=== PATIENT | male | born 1970 | race Caucasian/White ===

== ENCOUNTER 2021-12-26 14:34 | Emergency (ER) | payer BC, SELFPAY ==
[2021-12-26 14:43] VITALS: BP 146/83; PULSE 98; RESP 16; TEMP 36.9; O2SAT 95
--- NOTE | 2021-12-26 14:48 | ED.URI ---
HPI - URI/Sore Throat General Chief Complaint: Upper Respiratory Infection Stated Complaint: Cough, SOB, Right Ear Irritation Time Seen by Provider: 12/26/21 15:11 Source: patient, RN notes reviewed and old records reviewed Mode of arrival: ambulatory Limitations: no limitations History of Present Illness HPI Narrative: 51-year-old male presents to the [facility] with complaints of cough, shortness of breath for 3 weeks. Patient states his cough is worse at night. States that he has tried medication and is just not getting any better. Also concern for his right ear last week it was draining fluid. States that it was painful for a few days, no longer painful Has tried [id number] products. Recently was sick and was treated by her primary with antibiotics and steroids. Patient denies any chest pain, abdominal pain. Denies fevers. MD elicited complaint: cough Related Data Allergies Allergy/AdvReac Type Severity Reaction Status Date / Time No Known Allergies Allergy Unknown Unverified 12/26/21 14:53 Review of Systems Review of Systems: All systems reviewed & are unremarkable except as noted in HPI and below Constitutional: Constitutional: Reports no additional constitutional complaints, Denies chills and Denies fever(s) Eyes: Eyes: Reports no additional eye complaints ENT: Reports as per HPI and Reports otalgia (Right) Cardiovascular: Cardiovascular: Reports no additional cardiovascular complaints Respiratory: Respiratory: Reports as per HPI, Reports chest congestion, Reports cough and Reports wheezing Gastrointestinal: Gastrointestinal: Reports no additional gastrointestinal complaints Musculoskeletal: Musculoskeletal: Reports no additional musculoskeletal complaints Integumentary/Breasts: Skin/Breast: Reports system reviewed and no additional complaints, except as docu Neurologic: Reports system reviewed and no additional complaints, except as documented Psychiatric: Psychiatric: Reports no additional psychiatric complaints Allergic/Immunologic: Allergic/Immunologic: Reports no additional allergic/immunologic complaints [facility] Past Medical History Medical History (Updated 12/27/21 @ 09:29 by Jessica Alvarez APRN) Pulmonary embolism History of, unknown cause, no longer takes blood thinners Social History Social History (Updated 12/27/21 @ 09:29 by Jessica Alvarez APRN) Living arrangements: with family Gender identity (if verbalized by the patient): Male Comments At the time of my signature, I reviewed and agree with the nursing past medical, surgical, social, and family history. There is no relevant family history pertinent to the patient complaint. Exam Const: General: healthy appearing, comfortable, no acute distress, well developed, alert and well nourished Nutritional Appearance: well nourished Orientation/consciousness: patient oriented x3 Limitations: no limitations HENMT: Head: normal to inspection Ears: external ears normal, EAC's normal and TM abnormal wth effusion serous on the right and scarred on the right Face/Nose/Sinus: Normal external nose present and Normal nares present Face and sinus: normal facial exam Mouth: Yes Normal oral and palatal mucosa present Throat: posterior oropharynx normal and uvula midline Eyes: General: appearance normal, both eyes and all related structures Pupils: Equal, round and reactive pupils present Neck: Neck: normal visual inspection, full ROM, no lymphadenopathy and no meningeal signs Chest: Chest palpation & inspection: normal inspection of the chest Resp: Effort & Inspection: normal respiratory effort and no use of accessory muscles Auscultation: no crackles, no rales, no rhonchi and wheezes expiratory wheezes and throughout Cardio: Rate: regular rate Rhythm: regular rhythm Back/Spine/Pelvis: Cervical Spine: cervical ROM normal and No Cervical spine tenderness Thoracic/Lumbar Spine: thoracic and lumbar spine normal to inspection and
== END 2021-12-26 15:27 | disposition home or self-care (01) ==
PROVIDERS: Emergency Provider Nurse Practitioner; PCP Internal Medicine
DX: J40 Bronchitis, not specified as acute or chronic (principal); Z86.711 Personal history of pulmonary embolism
CPT/HCPCS: 99213; G0463

== ENCOUNTER 2022-10-16 18:11 | Observation (INO) | payer BC, SELFPAY ==
--- NOTE | ~2022-10-16 | CT_ITS ---
EXAMINATION: CTA chest PE protocol DATE: 10/16/2022 22:53 INDICATION: Shortness of breath. TECHNIQUE: Computed tomography angiography (CTA) of the chest was performed with 100 mL Omnipaque-350 intravenous contrast timed to evaluate the pulmonary arteries. Coronal maximum intensity projection 3D-reconstructions were created by the technologist. Automated exposure control and iterative reconst ruction technique were employed. The dose-length product was 1239.54 mGy-cm. COMPARISON: Chest CT 12/14/2018 FINDINGS: The lungs demonstrate minimal atelectasis. No pleural effusion. The heart size is normal. N o pericardial effusion. There are pulmonary emboli in right upper lobe, right lower lobe, left lower lobe, and lingula. There are cysts in the kidneys measuring up to 3.5 cm on the right. There is mild thoracic spondylosis. IMPRESSION: 1. Bilateral acute pulmonary emboli. I called this result to Dr. Mckeon. Reviewed, dictated and finalized at location E.
--- NOTE | ~2022-10-16 | US_ITS ---
EXAMINATION: US venous doppler [facility] DATE: 10/16/2022 21:54 INDICATION: Left thigh pain. TECHNIQUE: Grayscale ultrasound images without and with compression and Doppler ultrasound images of the left lower extremity veins were obtained. COMPARISON: Ultrasound 08/02/2017 FINDINGS: The visualized portions of left common femoral vein, profunda (deep) femoral vein, femoral vein, popl iteal vein, peroneal veins, and posterior tibial veins are patent. There is thrombus in left greater saphenous vein. IMPRESSION: 1. No deep venous thrombosis. 2. Superficial vein thrombosis involving left greater saphenous vein. Reviewed, dictated and finalized at location E.
[2022-10-16 18:42] VITALS: BP 147/90; PULSE 108; RESP 20; TEMP 36.6; O2SAT 97
[2022-10-16 19:21] LABS: Basophils Absolute Auto 0.1 K/mm3 (0.0-0.1); Basophils Percent Auto 0.8 % (0.2-1.2); Eosinophils Absolute Auto 0.2 K/mm3 (0-0.3); Eosinophils Percent Auto 1.8 % (0-4.4); Hematocrit 44.9 % (42.0-52.0); Hemoglobin 15.3 g/dL (14.0-18.0); Immature Granulocyte Absolute 0.02 K/mm3 (0.00-0.031); Immature Granulocyte Percent A 0.2 % (0-0.5); Lymphocytes Absolute Auto 1.93 K/mm3 (0.9-3.2); Lymphocytes Percent Auto 23.3 % (18.3-44.2); Mean Corpuscular HGB Conc 34.1 g/dl (32-36); Mean Corpuscular Hemoglobin 32.6 pg (26-34); Mean Corpuscular Volume 95.7 fl (80-100); Mean Platelet Volume 9.2 fl (7.4-10.4); Monocytes Absolute Auto 0.7 K/mm3 (0.1-0.6); Monocytes Percent Auto 8.7 % (2.6-8.5); Neutrophils Absolute Auto 5.4 K/mm3 (1.3-6.7); Neutrophils Percent Auto 65.2 % (45.5-73.1); Platelet Count Result 255 k/mm3 (150-375); Red Blood Count 4.69 M/mm3 (4.6-6.20); Red Cell Distribution Width 12.2 % (11.5-14.5); White Blood Count 8.3 K/mm3 (4.5-10.0)
[2022-10-16 19:33] LABS: Alanine Aminotransferase 31 U/L (6-50); Albumin Level 4.7 g/dL (3.5-5.1); Alkaline Phosphatase 46 U/L (38-126); Anion Gap 9 mmol/L (8-16); Aspartate Amino Transferase 36 U/L (17-59); Bilirubin,Total 1.1 mg/dL (0.2-1.3); Blood Urea Nitrogen 18 mg/dL (9-20); Calcium 9.4 mg/dL (8.4-10.2); Carbon Dioxide 24 mmol/L (22-30); Chloride 105 mmol/L (98-107); Estimated CRCL calculation 140 ml/min; Estimated Glomerular Filt Rate > 60; Glucose 93 mg/dL (65-110); Potassium 3.9 mmol/L (3.4-5.0); Sodium 138 mmol/L (137-145)
[2022-10-16 19:47] LABS: D Dimer 2.26 ug/mL (<0.48)
[2022-10-16 23:27] LABS: Basophils Absolute Auto 0.1 K/mm3 (0.0-0.1); Basophils Percent Auto 0.9 % (0.2-1.2); Eosinophils Absolute Auto 0.2 K/mm3 (0-0.3); Eosinophils Percent Auto 2.2 % (0-4.4); Hematocrit 43.6 % (42.0-52.0); Hemoglobin 15.1 g/dL (14.0-18.0); Immature Granulocyte Absolute 0.02 K/mm3 (0.00-0.031); Immature Granulocyte Percent A 0.3 % (0-0.5); Lymphocytes Absolute Auto 2.39 K/mm3 (0.9-3.2); Lymphocytes Percent Auto 30.5 % (18.3-44.2); Mean Corpuscular HGB Conc 34.6 g/dl (32-36); Mean Corpuscular Hemoglobin 32.7 pg (26-34); Mean Corpuscular Volume 94.4 fl (80-100); Mean Platelet Volume 8.8 fl (7.4-10.4); Monocytes Absolute Auto 0.8 K/mm3 (0.1-0.6); Monocytes Percent Auto 10.5 % (2.6-8.5); Neutrophils Absolute Auto 4.4 K/mm3 (1.3-6.7); Neutrophils Percent Auto 55.6 % (45.5-73.1); Platelet Count Result 227 k/mm3 (150-375); Red Blood Count 4.62 M/mm3 (4.6-6.20); Red Cell Distribution Width 12.3 % (11.5-14.5); White Blood Count 7.8 K/mm3 (4.5-10.0)
[2022-10-16] MEDS: HEPARIN SODIUM 5,000 UNITS/ML VIAL 9000 UNITS IV PUSH (23:30)
[2022-10-16] MEDS: HEPARIN SOD/D5W 100 UNITS/ML 25,000 UNITS/250 ML BAG 15 UNITS IV CONT (23:30)
[2022-10-16 23:37] LABS: Prothrombin Time 13.8 Seconds (11.1-14.7)
[2022-10-16 23:38] LABS: Partial Thromboplastin Time 30.8 SECONDS (22.3-36.8)
--- NOTE | 2022-10-16 23:41 | PM.IMHP ---
H&P: HPI History of Present Illness Date/Time: 10/16/22 23:41 Chief Complaint: SHORTNESS OF BREATH Narrative: THIS IS A 52-YEAR-OLD MALE WITH PAST MEDICAL HISTORY SIGNIFICANT FOR MORBID OBESITY, ASTHMA. PATIENT PRESENTS TO THE EMERGENCY ROOM DUE TO SHORTNESS OF BREATH AT EXERTION, DENIES HEMOPTYSIS DENIES COUGH DENIES SPUTUM PRODUCTION NO CHEST PAIN NO PND NO ORTHOPNEA NO LEG SWELLING PATIENT ALSO NOTED A SWELLING REDNESS AND TENDERNESS LOCALIZED TO THE LOWER 3RD OF HIS INNER THIGH JUST ABOVE THE KNEE. EXAMINATION: US venous doppler LE LT DATE: 10/16/2022 21:54 INDICATION: Left thigh pain. TECHNIQUE: Grayscale ultrasound images without and with compression and Doppler ultrasound images of the left lower extremity veins were obtained. COMPARISON: Ultrasound 08/02/2017 FINDINGS: The visualized portions of left common femoral vein, profunda (deep) femoral vein, femoral vein, popliteal vein, peroneal veins, and posterior tibial veins are patent. There is thrombus in left greater saphenous vein. IMPRESSION: 1.? No deep venous thrombosis. 2. Superficial vein thrombosis involving left greater saphenous vein. EXAMINATION: CTA chest PE protocol DATE: 10/16/2022 22:53 INDICATION: Shortness of breath. TECHNIQUE: Computed tomography angiography (CTA) of the chest was performed with 100 mL Omnipaque-350 intravenous contrast timed to evaluate the pulmonary arteries. Coronal maximum intensity projection 3D-reconstructions were created by the technologist. Automated exposure control and iterative reconstruction technique were employed. The dose-length product was 1239.54 mGy-cm. COMPARISON: Chest CT 12/14/2018 FINDINGS: The lungs demonstrate minimal atelectasis. No pleural effusion. The heart size is normal. No pericardial effusion. There are pulmonary emboli in right upper lobe, right lower lobe, left lower lobe, and lingula. There are cysts in the kidneys measuring up to 3.5 cm on the right. There is mild thoracic spondylosis. IMPRESSION: 1. Bilateral acute pulmonary emboli. I called this result to Dr. Mckeon. Review of Systems Review of Systems: SHORTNESS OF BREATH Constitutional: Constitutional: Denies chills, Denies fever(s), Denies malaise and Denies weakness Eyes: Eyes: Denies change in vision ENT: Denies dysphagia, Denies vertigo, Denies dizziness and Denies odynophagia Cardiovascular: Cardiovascular: Denies chest pain, Denies radiating jaw, neck or arm pain and Denies palpitations Respiratory: Respiratory: Denies chest congestion, Denies cough, Denies hemoptysis and Reports pain on inspiration Gastrointestinal: Gastrointestinal: Denies abdominal pain, Denies dyspepsia, Denies heartburn, Denies diarrhea, Denies nausea and Denies vomiting Genitourinary: Genitourinary: Denies dysuria Musculoskeletal: Musculoskeletal: Denies muscle weakness Integumentary/Breasts: Skin/Breast: Reports erythema and Reports skin swelling (Of thrombophlebitis distal 3rd of the thigh) Neurologic: Denies vertigo, Denies dizziness, Denies syncope, Denies focal weakness and Denies Sensory deficit (Neuro) Psychiatric: Psychiatric: Reports no additional psychiatric complaints and Reports as per HPI Endocrine: Endocrine: Denies cold intolerance, Denies fatigue, Denies flushing, Denies heat intolerance, Denies polyphagia, Denies polydipsia, Denies polyuria and Denies palpitations Hematologic/Lymphatic: Hematologic/Lymphatic: Reports no additional hematologic/lymphatic complaints and Reports as per HPI Allergic/Immunologic: Allergic/Immunologic: Reports no additional allergic/immunologic complaints and Reports as per HPI PMFSH Past Medical History Medical History Pulmonary embolism History of, unknown cause, no longer takes blood thinners Social History Social History Smoking status: Never smoker Alcohol
[2022-10-16 23:52] VITALS: BP 150/97; PULSE 83; RESP 17; O2SAT 98
[2022-10-16 23:52] LABS: NT Pro B Type Natriuretic Pept < 20 pg/mL (19.9-100); Troponin I < 0.012 ng/mL (0.000-0.034)
[2022-10-16 23:59] VITALS: PULSE 83
[2022-10-17] VITALS (8 sets, daily range): BP systolic 108–157; BP diastolic 51–93; PULSE 75–89; RESP 15–20; TEMP 36.1–36.5; O2SAT 96–98; BMI 40.3
--- NOTE | 2022-10-17 | ECHO_ITS ---
Patient Info Name: Iglesia Bassett Age: 52 years : 1970 Gender: Male Ht: 77 in Wt: 339 lbs BSA: 2.95 m2 HR: 73 bpm BP: 133 / 84 mmHg Heart Rhythm: Sinus Rhythm Technical Quality: Fair Exam Date: 10/17/2022 2:15 PM Exam Location: [facility] Pulmonary Patient Status: Inpatient Admit Date: 10/17/2022 Staff Ordering Physician: Ligia Bates APRN Resource Efficiency Manager: Marla Winter RDCS Attending Provider: Louisa Burrell MD Referring Physician: Jana GARNER; Exam Type: CA echo doppler color flow Study Info Indications - PE Complete two-dimensional, color flow and Doppler transthoracic echocardiogram is performed. Summary 1. Complete two-dimensional, color flow and Doppler transthoracic echocardiogram is performed. 2. Left ventricular chamber dimension is normal. 3. Left ventricular systolic function is normal, estimated at 65-70%. 4. There is mildly increased left ventricular wall thickness. 5. The left ventricular diastolic function is abnormal. 6. Right ventricular chamber dimension is mildly enlarged. 7. Left atrial chamber dimension is mildly enlarged. 8. There is mild aortic valve regurgitation. 9. There is mild mitral valve regurgitation. 10. The mitral valve has thickened leaflets. 11. There is mild tricuspid valve regurgitation. 12. No pulmonary hypertension, estimated pulmonary arterial systolic pressure is 34 mmHg. Left Ventricle Left ventricular chamber dimension is normal. Left ventricular systolic function is normal, estimated at 65-70%. There is mildly increased left ventricular wall thickness. The left ventricular diastolic function is abnormal. Right Ventricle Right ventricular chamber dimension is mildly enlarged. Right ventricular systolic function is normal. Left Atria Left atrial chamber dimension is mildly enlarged. Right Atria Right atrial chamber dimension is normal. Atrial Septum Intact interatrial septum visualized by color flow imaging. Aortic Valve The aortic valve is trileaflet. There is mild aortic valve sclerosis. There is no aortic valve stenosis. There is mild aortic valve regurgitation. Pulmonic Valve The pulmonic valve is normal. There is no pulmonic valve stenosis. There is trace pulmonic regurgitation. Mitral Valve The mitral valve has thickened leaflets. There is no mitral valve stenosis. There is mild mitral valve regurgitation. Tricuspid Valve The tricuspid valve leaflets are normal. There is no significant tricuspid valve stenosis. There is mild tricuspid valve regurgitation. No pulmonary hypertension, estimated pulmonary arterial systolic pressure is 34 mmHg. Pericardium/Pleural The pericardium appears normal. There is no pericardial effusion. Inferior Vena Cava Normal inferior vena cava with >50% collapse upon inspiration consistent with normal right atrial pressure, 10 mmHg. Aorta The aortic root size at the sinus of Valsalva is normal. Left Ventricular Outflow Tract Name Value Normal LVOT 2D LVOT Diameter 2.0 cm LVOT Doppler LVOT Peak Gradient 6 mmHg LVOT Mean Gradient 3 mmHg LVOT VTI 25 cm LVOT VTI/AV VTI Ratio
--- NOTE | 2022-10-17 00:17 | ED.GENADULT ---
HPI - General Adult General Chief complaint: Shortness of Breath/Dyspnea Stated complaint: sob Time Seen by Provider: 10/16/22 23:08 History of Present Illness HPI narrative: Patient is a 52-year-old gentleman who presents the emergency department with chief complaint of left leg pain and shortness of breath. Patient reports he has prior history of a DVT and pulmonary embolism. Patient reports he was treated with anticoagulants and was able to be taken off of the blood thinner and has been doing well. The patient reports he has had no travel no trauma reports he does work a job where he sits a lot patient reports over the last several days he has noticed some redness and swelling in the left lower extremity at the level of the knee patient reports he is also started having shortness of breath and was concerned that he may have had a pulmonary embolism. Related Data Allergies Allergy/AdvReac Type Severity Reaction Status Date / Time No Known Allergies Allergy Unknown Unverified 12/26/21 14:53 Review of Systems Review of Systems: A 10 system review of systems was completed on the patient and is negative except for what is stated in the HPI. Nursing and ancillary documentation was reviewed. [facility] Past Medical History Medical History Pulmonary embolism History of, unknown cause, no longer takes blood thinners Social History Social History Living arrangements: with family Gender identity (if verbalized by the patient): Male Exam Narrative: GENERAL: Well-appearing, well-nourished, and in no acute distress. HEAD: Normocephalic, atraumatic. EYES: PERRLA and EOMI. ENT: Nares clear, no rhinorrhea or epistaxis. Mucous membranes moist. NECK: Supple. CHEST: Clear to auscultation. No respiratory distress. HEART: Regular rate and rhythm. No murmur heard. Normal peripheral pulses. ABDOMEN: Soft, nontender, nondistended, normal active bowel sounds. EXTREMITIES: Normal range of motion. Slight edema of the left lower extremity there is an area of erythema just proximal to the popliteal fossa on the left lower extremity on the medial aspect. SKIN: Warm, dry, no rash. NEURO: No focal deficits. Alert and oriented x3. PSYCH: Normal mood and affect. Course Vital Signs Vital signs: Vital Signs Temperature 36.6 C 10/16/22 18:42 Pulse Rate 108 H 10/16/22 18:42 Respiratory Rate 20 10/16/22 18:42 Blood Pressure 147/90 H 10/16/22 18:42 Pulse Oximetry 97 10/16/22 18:42 Oxygen Delivery Room Air 10/16/22 18:42 Temperature 36.6 C 10/16/22 18:42 Pulse Rate 83 10/16/22 23:59 Respiratory Rate 17 10/16/22 23:52 Blood Pressure 150/97 H 10/16/22 23:52 Pulse Oximetry 98 10/16/22 23:52 Oxygen Delivery Room Air 10/16/22 18:42 Medical Decision Making MDM Narrative Medical decision making narrative: Differential diagnosis includes deep venous thrombosis, pulmonary embolism Venous duplex of the left lower extremity showed: Superficial vein thrombosis involving left greater saphenous vein CTA chest showed evidence of Bilateral acute pulmonary emboli. There was no evidence of right heart strain on CT Laboratory studies were obtained which showed a normal CBC normal set of electrolytes negative troponin negative BNP Given the patient has multiple pulmonary emboli on CT scan the patient was started on heparin drip Case was discussed with the hospitalist the patient admitted for observation Vital Signs Vital Signs: Vital Signs Temperature 36.6 C 10/16/22 18:42 Pulse Rate 108 H 10/16/22 18:42 Respiratory Rate 20 10/16/22 18:42 Blood Pressure 147/90 H 10/16/22 18:42 Pulse Oximetry 97 10/16/22 18:42 Oxygen Delivery Room Air 10/16/22 18:42 Temperature 36.6 C 10/16/22 18:42 Pulse Rate 83 10/16/22 23:59 Respiratory Rate 17 10/16/22 23:52
--- NOTE | 2022-10-17 02:33 | ADMGEN ---
This patient, Iglesia Bassett, was admitted to 3 [facility] Surg Room 315-02 at 0203. Patient/family oriented to hospital policies and general routines including ID bracelet, bed and alarms, visiting hours, pain management, procedures, bathroom and other care routines, personal items, smoking policy, room service/diet, and visiting hours. Information on how to activate the Rapid Response Team has been discussed. Patient/Family are encouraged to report perceived risks to care and to ask questions if they do not understand what they are told or what they should do.
[2022-10-17 06:12] LABS: Basophils Absolute Auto 0.1 K/mm3 (0.0-0.1); Basophils Percent Auto 1.1 % (0.2-1.2); Eosinophils Absolute Auto 0.2 K/mm3 (0-0.3); Eosinophils Percent Auto 3.4 % (0-4.4); Hematocrit 41.3 % (42.0-52.0); Immature Granulocyte Absolute 0.02 K/mm3 (0.00-0.031); Immature Granulocyte Percent A 0.3 % (0-0.5); Lymphocytes Absolute Auto 2.04 K/mm3 (0.9-3.2); Lymphocytes Percent Auto 33.3 % (18.3-44.2); Mean Corpuscular HGB Conc 33.9 g/dl (32-36); Mean Corpuscular Hemoglobin 32.6 pg (26-34); Mean Platelet Volume 8.9 fl (7.4-10.4); Monocytes Absolute Auto 0.7 K/mm3 (0.1-0.6); Monocytes Percent Auto 10.8 % (2.6-8.5); Neutrophils Absolute Auto 3.1 K/mm3 (1.3-6.7); Neutrophils Percent Auto 51.1 % (45.5-73.1); Platelet Count Result 216 k/mm3 (150-375); Red Cell Distribution Width 12.5 % (11.5-14.5); White Blood Count 6.1 K/mm3 (4.5-10.0)
[2022-10-17 06:34] LABS: Partial Thromboplastin Time 65.5 SECONDS (22.3-36.8)
--- NOTE | 2022-10-17 07:46 | PM.IMPN ---
Progress Note: A&P Assessment and Plan (1) Bilateral pulmonary embolism: Code(s): I26.99 - Other pulmonary embolism without acute cor pulmonale Status: Acute Assessment and Plan: Heparin gtt Echo this morning Doppler shows superficial DVT of left greater saphenous which is likely source. Likely to transition to a DOAC after ECHO results Hypercoagulable workup pending given this is his second non-provoked DVT. (2) HTN (hypertension): Code(s): I10 - Essential (primary) hypertension Status: Acute Assessment and Plan: On home medications amlodipine and losartan. Holding this medications initially until ECHO results. Blood pressures reviewed and are stable Subjective Date/time seen: 10/17/22 07:46 Interval history: This is a 52-year-old male with a past medical history of morbid obesity, asthma, DVT, and PE. Patient comes to the ED with complaints of shortness of breath I is has left lower extremity redness and swelling. CTA confirms multiple pulmonary emboli. He was admitted for anticoagulation and observation. Will obtain an echocardiogram today to assess for right sided heart strain. 10/17: Patient seen at the bedside with his . He is resting comfortably and is in no acute distress. He denies shortness of breath or chest pain. He has some mild erythema, edema, and tenderness to his left medial thigh. He is currently on heparin drip multiple for PEs. An echocardiogram has been ordered as well as labs for hypercoagulable workup. This is his 2nd unprovoked DVT and PE. He has no complaints at this time. Review of Systems Review of Systems: All systems reviewed & are unremarkable except as noted in HPI and below Exam Narrative: General: well appearing, well developed, well nourished, appears stated age. HEENT: normocephalic, atraumatic. Mucous membranes moist. EOMI, PERRLA, bilateral sclera anicteric, no conjunctival injection. Neck supple without JVD, lymphadenopathy, or bruit. Respiratory: clear to auscultation bilaterally. No rales/rhonic/wheezes. Cardiovascular: Regular rate and rhythm, normal S1-S2 upon auscultation. No murmurs, rubs, or clicks. PMI is nondisplaced, capillary re-fill less than 3 second. Abdomen: Soft, flat, no pulsatile masses, non-distended and non-tender. No rebound, no guarding. No CVA tenderness, no hepatosplenomegaly. Bowel sounds present to all four quadrants. No high pitch or tinkling sounds, resonant to percussion. Extremities: No cyanosis or clubbing present. Slight erythema, tenderness, and warmth to left distal-medial thigh. Pulses are palpable 2/2. Active ROM to all four extremities. Neuro: Alert and orientated x 4. PERRLA. Cranial nerves 2-12 intact without focal deficit. Skin: Warm, dry, and intact, without rash, erythema, or lesion. Lines: PIV Incisions: N/a Psych: pleasant, cooperative, normal speech, normal affect, no hallucinations, no dysarthria Objective Data Vital Signs Vital Signs: Vital Signs - 24 hr 10/16/22 18:42 10/16/22 23:52 10/16/22 23:59 Temperature 97.9 F Pulse Rate 108 H 83 83 Respiratory Rate 20 17 Blood Pressure 147/90 H 150/97 H Pulse Oximetry 97 98 Oxygen Delivery Room Air 10/17/22 01:50 10/17/22 02:18 10/17/22 04:00 Temperature 97.5 F L Pulse Rate 81 75 78 Respiratory Rate 15 16 Blood Pressure 157/93 H 108/51 L Pulse Oximetry 96 96 Oxygen Delivery 10/17/22 06:00 10/17/22 06:18 Temperature 97.7 F Pulse Rate 81 Respiratory Rate 16 Blood Pressure 133/84 Pulse Oximetry 98 Oxygen Delivery Room Air Intake/Output Intake/Output: Intake & Output 10/14/22 10/15/22 10/16/22 10/17/22 23:59 23:59 23:59 23:59 Intake Total 150 Balance 150 Meds/Results Medications: Active Medications Generic Name Dose Route Start Last Admin Trade Name Freq PRN Reason Stop Dose Admin Heparin Sodium (Porcine) 4,500 units 10/16/22 23:08 Heparin Sodium 5,000 Units/Ml
[2022-10-17] MEDS: MONTELUKAST SODIUM 10 MG TABLET PO (09:14)
[2022-10-17] MEDS: TIZANIDINE HCL 4 MG TABLET PO (09:14)
[2022-10-17] MEDS: LORATADINE 10 MG TABLET PO (09:14)
[2022-10-17 09:35] LABS: Anion Gap 9 mmol/L (8-16); Blood Urea Nitrogen 20 mg/dL (9-20); Calcium 8.7 mg/dL (8.4-10.2); Carbon Dioxide 25 mmol/L (22-30); Chloride 104 mmol/L (98-107); Estimated CRCL calculation 140 ml/min; Estimated Glomerular Filt Rate > 60; Glucose 104 mg/dL (65-110); Sodium 138 mmol/L (137-145)
[2022-10-17 12:21] LABS: Basophils Percent Auto 0.8 % (0.2-1.2); Eosinophils Absolute Auto 0.2 K/mm3 (0-0.3); Eosinophils Percent Auto 3.2 % (0-4.4); Hematocrit 40.7 % (42.0-52.0); Hemoglobin 13.7 g/dL (14.0-18.0); Immature Granulocyte Absolute 0.01 K/mm3 (0.00-0.031); Immature Granulocyte Percent A 0.2 % (0-0.5); Lymphocytes Absolute Auto 1.72 K/mm3 (0.9-3.2); Lymphocytes Percent Auto 34.8 % (18.3-44.2); Mean Corpuscular HGB Conc 33.7 g/dl (32-36); Mean Corpuscular Hemoglobin 32.3 pg (26-34); Mean Platelet Volume 8.9 fl (7.4-10.4); Monocytes Absolute Auto 0.4 K/mm3 (0.1-0.6); Monocytes Percent Auto 8.7 % (2.6-8.5); Neutrophils Absolute Auto 2.6 K/mm3 (1.3-6.7); Neutrophils Percent Auto 52.3 % (45.5-73.1); Platelet Count Result 223 k/mm3 (150-375); Red Blood Count 4.24 M/mm3 (4.6-6.20); Red Cell Distribution Width 12.4 % (11.5-14.5); White Blood Count 4.9 K/mm3 (4.5-10.0)
[2022-10-17 12:36] LABS: Partial Thromboplastin Time 51.5 SECONDS (22.3-36.8)
[2022-10-17] MEDS: HEPARIN SODIUM 5,000 UNITS/ML VIAL 9000 UNITS IV PUSH (12:56)
[2022-10-17] MEDS: HEPARIN SOD/D5W 100 UNITS/ML 25,000 UNITS/250 ML BAG 20 UNITS IV CONT (15:13)
--- NOTE | 2022-10-17 16:46 | PM.DS ---
DS: Admitting Diagnosis Discharge Date October 17 Admitting Diagnosis TIA DS: Discharge Diagnosis Discharge Diagnosis (1) Bilateral pulmonary embolism: Code(s): I26.99 - Other pulmonary embolism without acute cor pulmonale Status: Acute Assessment and Plan: Heparin gtt Echo this morning Doppler shows superficial DVT of left greater saphenous which is likely source. Likely to transition to a DOAC after ECHO results Hypercoagulable workup pending given this is his second non-provoked DVT. (2) HTN (hypertension): Code(s): I10 - Essential (primary) hypertension Status: Acute Assessment and Plan: On home medications amlodipine and losartan. Holding this medications initially until ECHO results. Blood pressures reviewed and are stable DS: Summary Hospital Course Hospital Course: Interval history: This is a 52-year-old male with a past medical history of morbid obesity, asthma, DVT, and PE.? Patient comes to the ED with complaints of shortness of breath I is has left lower extremity redness and swelling.? CTA confirms multiple pulmonary emboli.? He was admitted for anticoagulation and observation. Will obtain an echocardiogram today to assess for right sided heart strain. 10/17:? Patient seen at the bedside with his .? He is resting comfortably and is in no acute distress.? He denies shortness of breath or chest pain.? He has some mild erythema, edema, and tenderness to his left medial thigh.? He is currently on heparin drip multiple for PEs.? An echocardiogram has been ordered as well as labs for hypercoagulable workup.? This is his 2nd unprovoked DVT and PE.? He has no complaints at this time. Status at Discharge Cognitive/behavioral status at discharge: A&Ox4 Time Spent with Patient Time attestation: Total time spent providing and/or coordinating discharge services: 40 Exam Narrative: General: well appearing, well developed, well nourished, appears stated age. HEENT: normocephalic, atraumatic. Mucous membranes moist. EOMI, PERRLA, bilateral sclera anicteric, no conjunctival injection. Neck supple without JVD, lymphadenopathy, or bruit. Respiratory: clear to auscultation bilaterally. No rales/rhonic/wheezes. Cardiovascular: Regular rate and rhythm, normal S1-S2 upon auscultation. No murmurs, rubs, or clicks. PMI is nondisplaced, capillary re-fill less than 3 second. Abdomen: Soft, flat, no pulsatile masses, non-distended and non-tender. No rebound, no guarding. No CVA tenderness, no hepatosplenomegaly. Bowel sounds present to all four quadrants. No high pitch or tinkling sounds, resonant to percussion. Extremities: No cyanosis or clubbing present. Slight erythema, tenderness, and warmth to left distal-medial thigh. Pulses are palpable 2/2. Active ROM to all four extremities. Neuro: Alert and orientated x 4. PERRLA. Cranial nerves 2-12 intact without focal deficit. Skin: Warm, dry, and intact, without rash, erythema, or lesion. Lines: PIV Incisions: N/a Psych: pleasant, cooperative, normal speech, normal affect, no hallucinations, no dysarthria DS: Data Data Completed and Pending Labs on day of discharge: Labs from last 24 hours 10/17/22 10/17/22 10/17/22 12:06 06:14 06:09 WBC 4.9 RBC 4.24 L Hgb 13.7 L Hct 40.7 L MCV 96.0 MCH 32.3 MCHC 33.7 RDW 12.4 Plt Count 223 MPV 8.9 Immature Gran % (Auto) 0.2 Neut % (Auto) 52.3 Lymph % (Auto) 34.8 [place] % (Auto) 8.7 H Eos % (Auto) 3.2 Baso % (Auto) 0.8 Lymph # (Auto) 1.72 [place] # (Auto) 0.4 Eos # (Auto) 0.2 Baso # (Auto) 0.0 Abs Immat Gran (auto) 0.01 Absolute Neuts (auto) 2.6 Absolute Nucleated RBC 0.0 Nucleated RBC % 0.0 PT INR APTT 51.5 H 65.5 H D-Dimer Prot C Funct Activity Pending Protein S Activity Pending Free Protein S Antigen Pending Antithrombin III Activ Pending Factor V Leiden Mutat Pending Fact
--- NOTE | 2022-10-17 17:00 | PC.NURSE ---
This nurse has reviewed the charting of the orienting license pending nurse and agree with the findings
[2022-10-22 18:27] LABS: Factor V (Leiden) Mutation NEGATIVE
== END 2022-10-17 17:20 | disposition home or self-care (01) ==
LOC: ANHED 10-17 00:21 → ANH3MEDSUR 10-17 01:38
PROVIDERS: Emergency Medicine; Nurse Practitioner Acute Care; Admitting Provider Internal Medicine; Emergency Provider Emergency Medicine; PCP Internal Medicine; Visit Provider Internal Medicine
DX: I26.99 Other pulmonary embolism without acute cor pulmonale (principal); I10 Essential (primary) hypertension; I82.812 Embolism and thrombosis of superficial veins of left lower extremity; I08.3 Combined rheumatic disorders of mitral, aortic and tricuspid valves; E66.01 Morbid (severe) obesity due to excess calories; Z68.41 Body mass index [BMI] 40.0-44.9, adult; Z86.718 Personal history of other venous thrombosis and embolism; Z86.711 Personal history of pulmonary embolism; F10.90 Alcohol use, unspecified, uncomplicated
CPT/HCPCS: 36415; 71275; 80048; 80053; 81240; 81241; 83880; 84484; 85025; 85300; 85303; 85306; 85380; 85610; 85730; 93306; 93971; 96365; 96366; 96376; 99285; A9270; G0378; J1644; Q9967

== ENCOUNTER 2022-12-21 10:16 | Emergency (ER) | payer BC, SELFPAY ==
[2022-12-21] VITALS (11 sets, daily range): BP systolic 115–154; BP diastolic 68–92; PULSE 66–93; RESP 10–22; TEMP 37.1; O2SAT 92–99
--- NOTE | ~2022-12-21 | CT_ITS ---
EXAMINATION: CT brain wo con DATE: 12/21/2022 11:00 INDICATION: Headache. TECHNIQUE: Computed tomography (CT) of the head was performed without intravenous contrast. The mA wa s adjusted according to patient size. Iterative reconstruction technique was employed. The dose-lengt h product was 681.00 mGy-cm. COMPARISON: Head CT 12/14/2018 FINDINGS: There is no intracranial hemorrhage, acute infarction, or abnormal intracranial mass lesion . The ventricles are normal in size. There is mucosal thickening in the paranasal sinuses. The mastoi d air cells are normal. IMPRESSION: 1. Normal brain. Reviewed, dictated and finalized at location E. IMPRESSION: 1. Normal brain.
--- NOTE | 2022-12-21 10:46 | ECG_ITS ---
Measurements Intervals [place] Rate: 75 P: 27 [place]: 159 QRS: -46 QRSD: 95 T: 25 QT: 397 QTc: 445 Interpretive Statements SINUS RHYTHM LEFT ANTERIOR FASCICULAR BLOCK ABNORMAL ECG COMPARED TO ECG 12/14/2018 19:55:41 LEFT ANTERIOR FASCICULAR BLOCK NOW PRESENT Electronically Signed On 12-21-2022 14:20:18 CDT by Hay Lovell D.O.
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
[2022-12-21 11:16] LABS: Basophils Absolute Auto 0.1 K/mm3 (0.0-0.1); Basophils Percent Auto 1.3 % (0.2-1.2); Eosinophils Absolute Auto 0.1 K/mm3 (0-0.3); Eosinophils Percent Auto 2.1 % (0-4.4); Hematocrit 48.8 % (42.0-52.0); Hemoglobin 16.4 g/dL (14.0-18.0); Immature Granulocyte Absolute 0.01 K/mm3 (0.00-0.031); Immature Granulocyte Percent A 0.2 % (0-0.5); Lymphocytes Absolute Auto 1.67 K/mm3 (0.9-3.2); Lymphocytes Percent Auto 31.2 % (18.3-44.2); Mean Corpuscular HGB Conc 33.6 g/dl (32-36); Mean Corpuscular Hemoglobin 31.8 pg (26-34); Mean Corpuscular Volume 94.8 fl (80-100); Mean Platelet Volume 9.7 fl (7.4-10.4); Monocytes Absolute Auto 0.4 K/mm3 (0.1-0.6); Monocytes Percent Auto 6.9 % (2.6-8.5); Neutrophils Absolute Auto 3.1 K/mm3 (1.3-6.7); Neutrophils Percent Auto 58.3 % (45.5-73.1); Platelet Count Result 335 k/mm3 (150-375); Red Blood Count 5.15 M/mm3 (4.6-6.20); Red Cell Distribution Width 12.1 % (11.5-14.5); White Blood Count 5.4 K/mm3 (4.5-10.0)
[2022-12-21] MEDS: SODIUM CHLORIDE 0.9% IV 1,000 ML 999 ML IV CONT (11:19)
[2022-12-21] MEDS: PROCHLORPERAZINE EDISYLATE 10 MG/2 ML VIAL IV PUSH (11:20)
[2022-12-21] MEDS: diphenhydrAMINE HCl INJ 50 MG/ML VIAL 25 MG IV PUSH (11:23)
[2022-12-21] MEDS: ACETAMINOPHEN 500 MG TABLET 1000 MG PO (11:24)
[2022-12-21 11:54] LABS: Alanine Aminotransferase 35 U/L (6-50); Albumin Level 4.5 g/dL (3.5-5.1); Alkaline Phosphatase 48 U/L (38-126); Anion Gap 8 mmol/L (8-16); Aspartate Amino Transferase 34 U/L (17-59); Blood Urea Nitrogen 15 mg/dL (9-20); Calcium 9.1 mg/dL (8.4-10.2); Carbon Dioxide 24 mmol/L (22-30); Chloride 104 mmol/L (98-107); Estimated CRCL calculation 126 ml/min; Estimated Glomerular Filt Rate > 60; Glucose 108 mg/dL (65-110); Potassium 4.1 mmol/L (3.4-5.0); Sodium 136 mmol/L (137-145)
[2022-12-21 12:32] LABS: INR 1.2; Prothrombin Time 16.3 Seconds (11.1-14.7)
[2022-12-21 12:33] LABS: Partial Thromboplastin Time 39.9 SECONDS (22.3-36.8)
== END 2022-12-21 13:45 | disposition home or self-care (01) ==
PROVIDERS: Emergency Provider Physician Assistant; PCP Internal Medicine
DX: G44.209 Tension-type headache, unspecified, not intractable (principal); R55 Syncope and collapse; I10 Essential (primary) hypertension; Z86.711 Personal history of pulmonary embolism; Z79.01 Long term (current) use of anticoagulants
CPT/HCPCS: 36415; 70450; 80053; 85025; 85610; 85730; 93005; 96361; 96374; 96375; 99284; A9270; J0780; J1200; J7030

== ENCOUNTER 2024-02-12 09:15 | Emergency (ER) | payer BC, SELFPAY ==
--- NOTE | 2024-02-12 09:50 | ED_ITS ---
HPI - URI/Sore Throat General Stated Complaint: Sinus Time Seen by Provider: 02/12/24 09:50 Source: patient, RN notes reviewed and old records reviewed Mode of arrival: ambulatory Limitations: no limitations History of Present Illness HPI Narrative: Patient who was treated 2 weeks ago for atypical pneumonia presents with complaints of feeling so he failed treatment. He states that while taking azithromycin and prednisone he began feeling better, but never felt as though infection had also we cleared. Over the past few days he reports lack of energy, increased sputum production. He denies any fever, chills, sweats. Denies any shortness of breath Related Data Home Medications ?Medication ?Instructions ?Recorded ?Confirmed ?Last Taken ?Type budesonide-formoterol HFA 160 See Rx Instructions .Route .COMPLEX 10/17/22 02/12/24 Unknown History mcg-4.5 mcg/actuation aerosol inhaler (Symbicort) losartan 50 mg tablet 50 mg PO DAILY 10/17/22 02/12/24 Unknown History hydrochlorothiazide 12.5 mg tablet mg 02/12/24 Unknown History levothyroxine 25 mcg tablet mcg 02/12/24 Unknown History (Synthroid) metoprolol succinate 25 mg mg PO 02/12/24 Unknown History tablet,extended release 24 hr rivaroxaban 20 mg tablet (Xarelto) mg 02/12/24 Unknown History Allergies Allergy/AdvReac Type Severity Reaction Status Date / Time No Known Allergies Allergy Unknown Verified 02/12/24 09:47 Review of Systems Review of Systems: All systems reviewed & are unremarkable except as noted in HPI and below Constitutional: Constitutional: Reports no additional constitutional complaints ENT: Reports system reviewed and no additional complaints, except as documented Cardiovascular: Cardiovascular: Reports no additional cardiovascular complaints Respiratory: Respiratory: Reports no additional respiratory complaints, Report s change in phlegm color, Reports chest congestion, Reports cough, Reports excessive phlegm production and Reports pain with cough Gastrointestinal: Gastrointestinal: Reports no additional gastrointestinal complaints PMFSH Past Medical History Medical History Pulmonary embolism History of, unknown cause, no longer takes blood thinners Social History Social History Smoking status: Never smoker Alcohol intake: current Drinks per week: 1 Substance use: never Lack of Transportation: No Lack of Food: Never True Current Housing: I Have Housing Concerned About Future Housing: No Difficulty Paying Gas/Electric Bills: No Difficulty Paying for Meds: No Currently Unemployed: No Education: Bachelor's Degree Difficulty w/ Childcare or Family Care: No Living arrangements: with family Gender identity (if verbalized by the patient): Male Spiritual care concerns: No Comments At the time of my signature, I reviewed and agree with the nursing past medical, surgical, social, and family history. There is no relevant family history pertinent to the patient complaint. Exam Const: General: cooperative, no acute distress, alert and awake Orientation/consciousness: oriented to person, oriented to place and oriented to time HENMT: Head: normal to inspection Mouth: Yes moist mucous membranes Resp: Effort & Inspection: normal respiratory effort and able to speak in complete sentences Auscultation: clear to auscultation bilaterally, crackles on the left at the base, no rales, no rhonchi and no wheezes Cardio: Palpation: normal PMI Rate: regular rate Rhythm: regular rhythm Heart sounds: S1 normal heart sound present and S2 normal heart sound present Neuro: General: oriented to person, oriented to place and oriented to time Cranial nerves: Yes CN's II-XII intact bilaterally Psych: Appearance: grossly normal Thought process: Normal thought process present Insight: Good insight present (Psych) Judgement: Good judgement present (Psych) Course Course Level of Care: Express Care Visit Vital Signs Vital signs: Reviewed MDM - URI/Sore Throat MDM Narrative Medical decision making narrative: Patient failed monotherapy of azithromycin for atypical pneumonia. He does have multiple comorbidities. Start doxycycline, steroid Dosepak, refill albuterol. Patient is nontoxic appearing, stable for discharge home on p.o. antibiotic therapy. Strict emergency department precautions discussed. Discharge instructions reviewed with patient, as well as provided in writing per nursing staff. The instructions also include specific and strict return/GO TO THE ER as well as f/u information. All questions have been answered, and the patient deny any further questions with discharge and discharge plan. Some parts of this dictation were generated by voice recognition software and may contain typographical and/or grammatical inaccuracies. Differential Diagnosis Differential diagnosis: Likely upper respiratory infection, croup, viral infection and influenza Medical Records Attestation: I reviewed the patient's medical records. Discharge Plan Discharge Clinical Impression: Pneumonia Qualifiers: Pneumonia type: due to unspecified organism Laterality: unspecified laterality Lung location: unspecified part of lung Qualified Code(s): J18.9 - Pneumonia, unspecified organism Patient Disposition: Home, Self-Care Condition: Stable Instructions: Antibiotic Form, Community Acquired Pneumonia (ED) Additional Instructions: Take all medications as prescribed. Follow up with primary care provider. Emergency department for any new or worsening symptoms Patient Language: [place] Prescriptions: New doxycycline hyclate 100 mg capsule 100 mg PO BID 10 Days Qty: 20 0RF albuterol sulfate [Ventolin HFA] 90 mcg/actuation HFA aerosol inhaler 2 puff inhalation QID PRN (Reason: shortness of breath or wheezing) Qty: 8.5 0RF methylprednisolone [Medrol (Wei)] 4 mg tablets,dose pack See Rx Instructions .ROUTE .COMPLEX Qty: 21 0RF Rx Instructions: for 6 days No Action albuterol sulfate 90 mcg/actuation HFA aerosol inhaler 2 puff inhalation QID PRN (Reason: shortness of breath or wheezing) Qty: 6.7 0RF (DME) Space Chamber Spacer See Rx Instructions .ROUTE .MEDSUPPLY Qty: 1 0RF Rx Instructions: As directed levothyroxine [Synthroid] 25 mcg tablet metoprolol succinate 25 mg tablet extended release 24 hr PO hydrochlorothiazide 12.5 mg tablet Xarelto 20 mg tablet losartan 50 mg tablet 50 mg PO DAILY budesonide-formoterol [Symbicort] 160-4.5 mcg/actuation HFA aerosol inhaler See Rx Instructions .ROUTE .COMPLEX Rx Instructions: INHALE 2 PUFFS BY MOUTH TWICE DAILY IN THE MORNING AND IN THE EVENING FOR ASTHMA Follow-up/Referrals: Gracia,MD Nigel [Primary Care Provider] - 1 Week Time of Disposition: 09:57
[2024-02-12 10:20] VITALS: BP 132/79; PULSE 90; RESP 20; TEMP 36.8; O2SAT 98
== END 2024-02-12 11:00 | disposition home or self-care (01) ==
PROVIDERS: Emergency Provider Nurse Practitioner Family; PCP Internal Medicine
DX: J18.9 Pneumonia, unspecified organism (principal)
CPT/HCPCS: 99213; G0463

== ENCOUNTER 2024-10-26 16:28 | Emergency (ER) | payer BC, SELFPAY ==
[2024-10-26] VITALS (11 sets, daily range): BP systolic 148–151; BP diastolic 69–87; PULSE 73–85; RESP 12–20; TEMP 36.6; O2SAT 94–100
--- NOTE | ~2024-10-26 | XR_ITS ---
EXAMINATION: XR chest 2V, 10/26/2024 17:50 CDT HISTORY: chest pain AND SOB COMPARISON: No comparisons available. Technique: 2 views obtained. Findings: The lungs are clear, no effusion. No pneumothorax. Heart is normal size. Mediastinal and hilar contours are within normal limits. Bony thorax no acute abnormality. Impression: No acute cardiopulmonary abnormality. Reviewed, dictated and finalized at location A. Impression: No acute cardiopulmonary abnormality.
--- NOTE | 2024-10-26 16:30 | ECG_ITS ---
Test Date: 2024-10-26 16:38:16 Measurements Intervals [place] Rate: 87 P: 47 [place]: 159 QRS: -52 QRSD: 100 T: 32 QT: 367 QTc: 443 Interpretive Statements SINUS RHYTHM PATTERN CONSISTENT WITH PULMONARY DISEASE LEFT ANTERIOR FASCICULAR BLOCK [QRS AXIS <= -45, QR IN I, RS IN II] No previous ECG available for comparison Electronically Signed On 10-26-2024 18:51:47 CDT by Willard Agudelo M.D.
--- OUTSIDE RECORDS SUMMARY | 2024-10-26 16:31 | XMS_ITS | Patient Health Record ---
Author Organization [facility] Address [address] [place] [address] Care Team Providers Care Crimper Assembler Name Role Phone LeonorFrank patterson Unavailable [phone] Reason For Referral No Information Plan Of Treatment No Information Insurance Providers Payer Name Payer Address Payer Phone Subscriber Number Group Number Insured Name Patient Relationship to Insured Coverage Start Date Coverage End Date Employe r/eScre en [address] [address] [place] [address] [phone] Iglesia Bassett Self - patient is the insured
--- OUTSIDE RECORDS SUMMARY | 2024-10-26 16:32 | XMS_ITS | Clinical Summary ---
Author Organization [facility] Address [address] [place] [address] Care Team Providers Care Drug Enforcement Agent Name Role Phone Nigel Fagan MD Primary Care Provider [phone] Source Comments [facility],non-owned Affiliates and Associated Physician Practices is amultiple site organization consisting of ambulatory clinics and hospital sitesin [place], [place], [place] and [place]. This disclosure is being madepursuant to the Care Everywhere program and may not contain all information available regarding this patient. Last updated 17.[facility] Allergies No known active allergies Medications * Be aware that medications may not be up to date on this document. Alwaysverify current medications with the patient. albuterol HFA (PROVENTIL; VENTOLIN; PROAIR) 108 (90 Base) MCG/ACT inhalerIndication s:Acute bronchitis, unspecified organism Inhale 2 (two) puffs by mouth every 6 hours as needed for Wheezing or Cough 1 g 2 1 Active Multiple Vitamins-Minerals (PRESERVISION AREDS 2) capsule Act job naproxen sodium (ALEVE) 220 MG tablet Take 220 mg by mouth Active benzonatate (TESSALON) 200 MG capsuleIndication s:Mild intermittent asthma with acute exacerbation (HCC) Take 1 (one) capsule by mouth 3 times daily as needed for Cough 30 capsule 1 Active predniSONE (DELTASONE) 50 MG tabletIndications :Asthma Take 1 (one) tablet by mouth once daily Reasons: Asthma 5 tablet 1 Active fluticasone hfa 44 (FLOVENT HFA 44) 44 MCG/ACT inhalerIndication s:Mild intermittent asthma with acute exacerbation (HCC) Inhale 2 (two) puffs by mouth 2 times daily 31.8 g Active Active Problems No known active problems Family History Relation Name Status Comments Father Alive Mother Alive Social History Tobacco Use Types Packs/Day Years Used Date Smoking Tobacco: Never Smokeless Tobacco: Never Alcohol Use Standard Drinks/Week Comments Yes 0 (1 standard drink = 0.6 oz pur e alcohol) AUDIT-C Answer Date Recorded Frequency of Alcohol Consumption Monthly or less 12/30/2018 Average Number of Drinks Not on file 019 Frequency of Binge Drinking Not on file 12/20 Sex and Gender Information Value Date Recorded Sex Assigned at Not on file Legal Sex Male 1:47 PM CDT Gender Identity Not on file Sexual Orientation Not on file Last Filed Vital Signs Vital Sign Reading Time Taken Comments Blood Pressure 138/92 02/11/2021 11:27 AM [employer] Pulse 103 02/11/2021 11:27 AM [employer] Temperature 36.9 C (98.5 F) 02/11/2021 11:27 AM [employer] Respiratory Rate 20 02/11/2021 11:27 AM [employer] Oxygen Saturation 92% 02/11/2021 11:27 AM [employer] Inhaled Oxygen Concentration - - Weight 154.2 kg (340 lb) 02/11/2021 11:27 AM [employer] Height 195.6 cm (6' 5) 02/11/2021 11:27 AM [employer]AC[employer] Body Mass Index 40.32 02/11/2021 11:27 AM [employer]BAC[employer] Plan of Treatment Health Maintenance Due Date Last Done Comments COLOGUARD (AGES 45-75) - COL ON CA SCREENING 1972 COLON MONITORING 1972 COLONOSCOPY - COLON CA SCREENING 1972 CT COLONOGRAPHY - COLON CA SCREENING 1972 Colorectal Cancer Screening 1972 FIT - COLON CA SCREENING 1972 FLEX SIG - COLON CA SCREENING 1972 LIPID TESTING 1972 HIV SCREENING 06/02/1987 HEPATITIS C SCREENING 05/28/1990 DTAP/TDAP/TD VACCINES (1 - Tdap) 06/02/1991 HEPATITIS B VACCINE (1 of 3 - 19+ 3-dose series) 06/02/1991 SCREENING FOR DIABETES 01/26/2021 PNEUMOCOCCAL VACCINE 50+ (1 of 1 - PCV) 2022 ZOSTER VACCINE (1 of 2) 2022 DEPRESSION SCREENING 02/20/2024 COVID-19 VACCINE (4 - 2024-2 6 season) 2024 12/14/2020, 05/19/2020, 04/21/2020 INFLUENZA VACCINE (#1) 2024 12/14/2020 HIB VACCINE Aged Out No longer eligi ble based on patient's age to complete this topic HPV VACCINE Aged Out No longer eligi ble based on patient's age to complete this topic MENINGOCOCCAL (Group B) VACCINE SHARED DECISION-MAKING Aged Out No longer eligible based on patient's age to complete this topic MENINGOCOCCAL GROUPS A/C/Y/W VACCINE Aged Out No longer eligible b ased on patient's age to complete this topic Goals Goal Patient Goal Type Associated Problems Recent Progress Patient-Stated? Author Mobility General No Elodia Aguiar RN Note: Expected end date: 02/19/2019 The goal is to maintain or improve your mobility at the optimum level for you. Interventions: Insurance PAYOR GENERIC ANTHEM PAYOR GENERIC Member Subscriber Plan / Payer (Ef fective 2018-Present) Name:Iglesia Ch Relation to Subscriber:Self Name:Iglesia Ch Payer ID:Not on file Group ID:Not on file Type:Worker's Comp Address: [address] [id number] [employer] PAYOR GENERIC ANTHEM ANTHEM ANTHEM ANTHEM ANTHEM ANTHEM ANTHEM ANTHEM ANTHEM Care Teams Drug Enforcement Agent Relationship Specialty Start Date End Date Nigel Fagan MD [address] [place] [address] PCP - General Internal Medicine 12/14/18
--- OUTSIDE RECORDS SUMMARY | 2024-10-26 16:32 | XMS_ITS | Clinical Summary ---
Author Organization [facility] Address [address] [place] [address] Care Team Providers Care Bologna Lacer Name Role Phone Nigel Fagan MD Primary Care Provider [phone] Allergies No known active allergies Medications naproxen (ANAPROX,ALEVE) 220 mg tablet Take 1 tablet (220 mg total) by mouth every 12 (twelve) hours as needed for pain Active vit C,I-Gq-zjxeb-lut ein-zeaxan [id number] rc-lxgo-jl-mg capsule Take by mouth. Activ e nutritional supplements liquid Take by mouth. 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 Active hydroCHLOROthiaz courtney (HYDRODIURIL) 25 mg tablet Take 1 tablet (25 mg total) by mouth daily Active metoprolol XL (TOPROL-XL) 25 mg extended release tablet Take 1 tablet (25 mg total) by mouth daily Active rivaroxaban (XARELTO) 20 mg tablet Take 1 tablet (20 mg total) by mouth daily with dinner Active losartan (COZAAR) 100 mg tablet Take 1 tablet (100 mg total) by mouth daily Active ofloxacin (OCUFLOX) 0.3 % ophthalmic solution Administer 1 drop into the left eye 4 (four) times a day 5 mL 1 4 Active prednisoLONE acetate (PRED FORTE) 1 % ophthalmic suspension Administer 1 drop into the left eye 4 (four) times a day 15 mL 1 4 Active Active Problems Problem Noted Date Diagnosed Date Pseudophakia of left eye 11/16/2023 Assessment & Plan (12/20/2023 9:28 AM CDT): POM #1 s/p CE/PCIOL - Doing well, vision and IOP as expected. Patient happy with vision. Near target -2.50. Hx of mac-off RD s/p repair. - Tapered off drops as instructed - OCT mac without macular edema - MRx today, defer glasses RTC 6 months with optom for DFE OU Assessment & Plan (11/22/2023 8:56 AM CDT): POW #1 s/p CE/PCIOL - Doing well, vision and IOP as expected. Near target -2.50. Hx of RD repair - D/C moxifloxacin - Taper prednisolone QID x 1 week, TIDx 1week, BIDx1 week, daily x 1 week then stop - Reviewed signs/symptoms endophthalmitis, RT/RD; patient to call immediately if any worsening vision, pain, redness, flashes/floaters/curtains. - Avoid lifting/bending/swimming for one more week. Protective eyewear during day. Okay to discontinue [place] shield at night. - RTC 1 month for DFEx, MRx Assessment & Plan (11/16/2023 4:22 PM CDT): POD #0 s/p CE/PCIOL - Doing well, vision and IOP as expected Postoperative instructions were given. The patient is to use: - Moxifloxacin QID X 1 week - Prednisolone Acetate 1% QID - Patient is to wear the shield at bedtime X 1 week. Signs, symptoms of retinal detachment, tear, hole, and endophthalmitis were reviewed and the patient is to call immediately for concerns. We discussed that things should improve until they stabilize. Should there be any worsening of pain, vision, or redness the patient is to call. 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 If experiencing any new pain OS, asked patient to call the office and restart cosopt bid OS until next appointment. If no changes stay off gtts. Keep retina f/u 04/24/18 Assessment & Plan (03/13/2018 11:00 AM FACILITY EXAMINER): IOP improved from 38 02/27/18 to 12 today. Will d/c cosopt and see back in 2 weeks in general clinic for IOP check, then plan on keeping retina appt 04/24/18 Left retinal detachment 01/21/2018 Overview (01/21/2018): Added automatically from request for surgery [id number] Assessment & Plan (03/31/2019 8:53 AM FACILITY EXAMINER): s/p PPV/laser/18% SF6 OS (01/25/2018) for mac off RD OS -- Pt feels vision OS is stable, doing well overall -- OCT with resolved persistent subretinal fluid since last visit RTC 6 months for repeat OCT macula OU and DFE OU Assessment & Plan (09/25/2018 9:37 AM CDT): POM 8 01/25/2018 status post (s/p) pars plana vitrectomy (PPV)/laser/18% SF6 the left eye. -- Pt feels vision OS is stable, doing well overall -- Stable few persistent subretinal fluid pockets since last visit on OCT -- RTC 6 months for repeat OCT and DFEx Assessment & Plan (06/20/2018 11:56 AM CDT): POM 5 01/25/2018 status post (s/p) pars plana vitrectomy (PPV)/laser/18% SF6 the left eye. -- Pt feels vision OS is stable, doing well overall -- Stable few persistent subretinal fluid pockets since last visit -- RTC 3 months for repeat OCT and DFEx Assessment & Plan (04/24/2018 5:35 PM FACILITY EXAMINER): POM 2 01/25/2018 status post (s/p) pars plana vitrectomy (PPV)/laser/18% SF6 the left eye .No changes in vision. IOP okay off drops. Overall doing well. Some persistent subretinal fluid pockets, but seems generally improved from prior. Periphery good. -RTC 2 months [facility]ERR[facility] for repeat OCT and DFEx. Assessment & Plan (02/27/2018 4:16 PM FACILITY EXAMINER): POM1 01/25/2018 status post (s/p) pars plana vitrectomy (PPV)/laser/18% SF6 the left eye .No changes in vision. IOP mildly elevated. -Pt did not start timolol; will start Cosopt BID starting today; informed pt that if the medication is too expensive, then we can write for separate timolol & dorzolamide RTC 2wks for IOP check and then 2 months to check retina Assessment & Plan (02/14/2018 8:23 AM FACILITY EXAMINER): Post op week #3 status post (s/p) pars plana vitrectomy (PPV)/laser/18% SF6 the left eye 01/25/18. No changes in vision. IOP mildly elevated. - Cont taper pred forte (PF) to BID x 1w then every day (QD) x 1w. - Will start pt on Timolol BID left eye (OS). Will stop timolol 1 day prior to visit. RTC 2wks. - RSVP precautions reviewed - Back to work 02/25/2018 Assessment & Plan (02/06/2018 2:18 PM FACILITY EXAMINER): Post op week #2 status post (s/p) pars plana vitrectomy (PPV)/laser/18% SF6 the left eye. Doing well. IOP mildly elevated. Will monitor for now. Vision pinholing better. right eye (OD) with single floater. Excellent vision. Will monitor - Discontinue Tobrex - Pred forte (PF) 3-2-1 then stop - RSVP precautions reviewed - Back to work 02/20/2018 - Plan for follow-up 2 weeks or sooner PRN Assessment & Plan (01/26/2018 9:19 AM FACILITY EXAMINER): Post op day #1 status post (s/p) pars plana vitrectomy (PPV)/laser/18% SF6 the left eye. Doing well. -Tobramycin QID the left eye x 1 wk then stop -Pred forte (PF) QIDthe left eye x 1 wk, then can taper to TID -Shield at bedtime (qhs) -RSVP precautions reviewed -f/u 7-10 days, sooner PRN Assessment & Plan (01/23/2018 3:20 PM FACILITY EXAMINER): OD s/p barrier cryotherapy (01/20/2018): Attached. Vision stable OS s/p pneumatic retinopexy (01/20/2018): Appears attached today under gas but unable to visualize peripheral tear for in-office laser. Scheduled for PPV left eye (OS). Will plan definitive treatment at that time with PPV/Endolaser/AFx - Continue positioning. Discussed R/B/A of procedures again. Plan for OR 01/23 Surgical History Surgery Date Site/Laterality Comments WISDOM TOOTH EXTRACTION LASER SURGERY 02/19/2002 - 02/18/2003 PARS PLANA VITRECTOMY 01/25/2018 Left pars plana vitrectomy (PPV)/laser/18% SF6 Medical History Medical History Date Comments PE (pulmonary thromboembolism) Head trauma DVT (deep venous thrombosis) Left retinal detachment 01/21/2018 Added au tomatically from request for surgery [id number] Family History Medical History Relation Name Comments Diabetes Paternal Grandmother Relation Name Status Comments Paternal Grandmother Social History Tobacco Use Types Packs/Day Years Used Date Smoking Tobacco: Never Smokeless Tobacco: Never Alcohol Use Standard Drinks/Week Comments Yes 1 (1 standard drink = 0.6 oz pur e alcohol) Personal Safety Answer Date Recorded Have you ever been in or are you currently in a harmful physical or emotional relationship or is someone making you feel afraid or unsafe? Denies 11/16/2023 Sex and Gender Information Value Date Recorded Sex Assigned at Not on file Legal Sex Male 5:20 AM FACILITY EXAMINER Gender Identity Male 03/31/2019 7:49 AM FACILITY EXAMINER Sexual Orientation Not on file Obstetrics History Last Filed Vital Signs Vital Sign Reading Time Taken Comments Blood Pressure 131/82 11/16/2023 11:40 AM CDT Pulse 66 11/16/2023 11:50 AM CDT Temperature 36.2 C (97.2 F) 11/16/2023 11:35 AM CDT Respiratory Rate 14 11/16/2023 11:50 AM CDT Oxygen Saturation 94% 11/16/2023 11:50 AM CDT Inhaled Oxygen Concentration - - Weight 133.8 kg (295 lb) 01/21/2018 12:50 PM FACILITY EXAMINER Height 195.6 cm (6' 5) 01/21/2018 12:50 PM FACILITY EXAMINER Body Mass Index 34.98 01/21/2018 12:50 PM FACILITY EXAMINER Plan of Treatment Health Maintenance Due Date Last Done Comments Colon Cancer Screening-Colonoscopy 1972 Depression Screening 1972 Hepatitis C Screening 1972 Prostate Cancer Screening-PSA 1972 DTaP/Tdap/Td Vaccine (1 - Tdap) 06/02/1983 Hepatitis B Screening 1990 Regular Well Visit/Exam 18-64 1990 Zoster Vaccine (1 of 2) 2022 Covid-19 Vaccine (4 - season) 2023 12/14/2020, 05/19/2020, 04/21/2020 Influenza Vaccine (#1) 2024 3, 12/14/2020, 11/14/2019 Pneumococcal vaccine <65 Completed 11/29/2022 Medical Devices Implanted Type Area Plastic Injection Mold Maker Device Identifier Shelf Expiration Date Model / Serial / Lot [employer] Lens Jose Sharp Iol [id number] - [id number] - [id number] Implanted:Qty: 1 on 11/16/2023 by Gurinder Crespo MD PhD at [facility] Lens Left: Eye [employer] [id number] 12/18/2025 [id number] / [id number] / Insurance ANTHEM ACCESS CHOICE BLUE ACC CHOICE OOS ANTHEM ACCESS CHOICE Care Teams Bologna Lacer Relationship Specialty Start Date End Date Nigel Fagan MD PCP - General 01/20/18
--- OUTSIDE RECORDS SUMMARY | 2024-10-26 16:32 | XMS_ITS | Clinical Summary ---
Author Organization [facility] Address [address] [place] [address] Care Team Providers Care Public Health Aide Name Role Phone Unavailable Primary Care Provider Unavailabl e Social History Tobacco Use Types Packs/Day Years Used Date Smoking Tobacco: Never Assessed Sex and Gender Information Value Date Recorded Sex Assigned at Not on file Legal Sex Male 9:55 AM CDT Gender Identity Not on file Sexual Orientation Not on file Plan of Treatment Health Maintenance Due Date Last Done Comments DTAP/TDAP/TD VACCINES (1 - Tdap) 06/02/1991 HEPATITIS B VACCINES (1 of 3 - 19+ 3-dose series) 05/20 COLORECTAL SCREENING 2017 Colorectal Cancer Screening 2017 FIT-DNA Q 3 years 2017 FIT/FOBT Q 1 year 2017 Flex Sig/CT Colonography Q 5 years 2017 ZOSTER VACCINE (1 of 2) 2022 INFLUENZA VACCINE (#1) 2024 Insurance [facility] BLUE ACCESS CHOICE [facility] BLUE ACCESS CHOICE
[2024-10-26 16:47] LABS: Hematocrit 40.1 % (42.0-52.0); Hemoglobin 13.5 g/dL (14.0-18.0); Immature Granulocyte Percent A 0.2 % (0-0.5); Lymphocytes Absolute Auto 1.58 K/mm3 (0.9-3.2); Mean Corpuscular HGB Conc 33.7 g/dl (32-36); Mean Corpuscular Hemoglobin 31.8 pg (26-34); Mean Corpuscular Volume 94.4 fl (80-100); Nucleated Red Blood Cells Absolute Auto 0.000 K/mm3 (0.0-0.012); Nucleated Red Blood Cells Perc 0.0 % (0.0-0.2); Platelet Count Result 222 k/mm3 (150-375); Red Blood Count 4.25 M/mm3 (4.6-6.20); White Blood Count 4.9 K/mm3 (4.5-10.0)
[2024-10-26 16:59] LABS: INR 1.4; Prothrombin Time 16.5 Seconds (11.1-14.7)
[2024-10-26 17:00] LABS: Partial Thromboplastin Time 31.5 Seconds (22.3-36.8)
[2024-10-26 17:03] LABS: Alanine Aminotransferase 27 U/L (6-50); Albumin Level 3.8 g/dL (3.5-5.1); Alkaline Phosphatase 44 U/L (38-126); Anion Gap 5 mmol/L (4-12); Aspartate Amino Transferase 41 U/L (17-59); Bilirubin,Total 1.0 mg/dL (0.2-1.3); Blood Urea Nitrogen 18 mg/dL (9-20); Calcium 8.8 mg/dL (8.4-10.2); Carbon Dioxide 29 mmol/L (22-30); Chloride 104 mmol/L (98-107); Estimated CRCL calculation 102 ml/min; Estimated Glomerular Filt Rate 58; Glucose 111 mg/dL (65-110); Lipase 72 U/L (23-300); Potassium 3.6 mmol/L (3.4-5.0); Sodium 138 mmol/L (137-145); Total Protein 6.4 g/dL (6.3-8.2)
[2024-10-26 17:10] LABS: Troponin I < 0.012 ng/mL (0.000-0.034)
--- NOTE | 2024-10-26 17:17 | ED_ITS ---
HPI - Chest Pain General Chief Complaint: Chest Pain Stated Complaint: chest pain, SOB Time Seen by Provider: 10/26/24 16:48 History of Present Illness HPI narrative: Patient is a 54-year-old male who presents to the ER with chest pain that started last night returned this afternoon. He endorses shortness of breath and lower extremity edema. 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 He also reports he has a history of stents in both hips. Patient denies any cough, recent fevers, acute back pain, or CVA tenderness. He denies any history of CHF. Patient endorses a history of pulmonary embolisms, back injury, May-Cruz disease, thyroid disorder, and high blood pressure. Related Data Home Medications ?Medication ?Instructions ?Recorded ?Confirmed ?Last Taken ?Type budesonide-formoterol HFA 160 See Rx Instructions .Rou te .COMPLEX 10/17/22 02/12/24 Unknown History mcg-4.5 mcg/actuation aerosol inhaler (Symbicort) losartan 50 mg tablet 50 mg PO DAILY 10/17/2201/20 Unknown History hydrochlorothiazide 12.5 mg tablet mg 02/12/24 Unknow n History levothyroxine 25 mcg tablet mcg 02/12/24 Unknown Hist ory (Synthroid) metoprolol succinate 25 mg mg PO 02/12/24 Unknown His tory tablet,extended release 24 hr rivaroxaban 20 mg tablet (Xarelto) mg 02/12/24 Unknow n History Allergies Allergy/AdvReac Type Severity Reaction Status Date / Time tizanidine AdvReac Intermediate Hypotension Verified 10/26/24 16:39 Review of Systems 2 Review of Systems: All systems reviewed & are unremarkable except as noted in HPI and below PMFSH Past Medical History Medical History (Updated 10/26/24 @ 20:39 by Edilma Falcon APRN) Pulmonary embolism (~10/26/24) due to May Thurner syndrome Social History Social History Smoking status: Never smoker Alcohol intake: current Drinks per week: 1 Substance use: never Lack of Transportation: No Lack of Food: Never True Current Housing: I Have Housing Concerned About Future Housing: No Difficulty Paying Gas/Electric Bills: No Difficulty Paying for Meds: No Currently Unemployed: No Education: Bachelor's Degree Difficulty w/ Childcare or Family Care: No Living arrangements: with family Gender identity (if verbalized by the patient): Male Spiritual care concerns: No Exam 2 Narrative: GENERAL: Well appearing, obese, non-toxic, in no acute distress. HEAD: Normocephalic, atraumatic. NECK: Supple. No adenopathy, no masses. RESPIRATORY: Airway patent, respirations nonlabored. Clear to auscultation bilaterally, no rales, rhonchi, wheezing. CARDIOVASCULAR: Regular rate and rhythm without murmurs, rubs, or gallops. Peripheral pulses 2+ and equal bilaterally. bilateral extreme lower extremity pitting edema. ABDOMINAL: Soft, nontender, nondistended, no hepatosplenomegaly. Normoactive BS. MUSCULOSKELETAL: Moves all extremities. Strength/ROM intact without gross deformities. + Homans test bilaterally SKIN: Warm, dry, normal color. No rashes. NEURO: A&O X3. Speech clear. Cranial nerves II-XII intact. No ataxic movements. PSYCHIATRIC: Appropriate mood and affect. Normal interaction. Course Vital Signs Vital signs: Vital Signs Temperature 36.6 C 10/26/24 16:35 Pulse Rate 85 10/26/24 16:35 Respiratory Rate 14 10/26/24 16:35 Blood Pressure 148/87 H 10/26/24 16:35 Pulse Oximetry 97 10/26/24 16:35 Oxygen Delivery Room Air 10/26/24 16:35 Temperature 36.6 C 10/26/24 16:35 Pulse Rate 73 10/26/24 21:01 Respiratory Rate 15 10/26/24 21:01 Blood Pressure 151/69 H 10/26/24 21:01 Pulse Oximetry 100 10/26/24 21:01 Oxygen Delivery Room Air 10/26/24 16:39 MDM - Chest Pain MDM Narrative Medical decision making narrative: Patient is a 54-year-old male who presents to the ER with chest pain that started last night returned this afternoon. He endorses shortness of breath and lower extremity edema. 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 He also reports he has a history of stents in both hips. Patient denies any cough, recent fevers, acute back pain, or CVA tenderness. He denies any history of CHF. Patient endorses a history of pulmonary embolisms, back injury, May-Cruz disease, thyroid disorder, and high blood pressure. Labs Ordered: CBC, CMP, BMP, TSH, troponin, PTT, INR, D-dimer, lipase Imaging Ordered: Chest x-ray Medications Ordered: Lasix 40 mg IV, potassium 40 mEq p.o. Results: Patient's chest x-ray indicates no acute abnormalities. His CBC indicates a WBC of 4.25, hemoglobin of 13.5, and hematocrit of 40.1%. Patient's coags indicated PT of 16.5, INR 1.4, APTT of 31.5. His D-dimer is 0.46. Patient's chemistry indicates GFR 58, glucose of 111. His proBNP is 161. Patient's TSH is 2.16. Diagnosis: Venous insufficiency Consults: 2000- Spoke with [facility] on-call provider, Marc Soria NP. He shared results from patient's venous ultrasound 1 week ago. The MORTGAGE PROTECTION SPECIALIST reports patient has no clots in his legs, but has severe left leg venous insufficiency. He reports the insufficiency could be backing up into the right leg which would cause bilateral leg pain. The MORTGAGE PROTECTION SPECIALIST suggested patient go home on a 30 day prescription of Lasix 40 mg to take in addition to his hydrochlorothiazide. He also advised patient have his potassium replaced orally during this time. Patient has a follow-up appointment scheduled for the 06 of November with his bumper straightener. The MORTGAGE PROTECTION SPECIALIST advised patient is safe to follow-up at his scheduled appointment. CRITICAL CARE ADDENDUM: Indication: chest pain, venous insufficiency Time type: intermittent I provided a total of 55 minutes of critical care excluding separately billable procedures. This includes time w/ EMS, initial bedside evaluation, reviewing old records, review of testing done while under my care, discussion w/ the family, nurses, sales enablement consultant and guiding the patient?s care while in the emergency department. Approximate time distribution: 15 minutes ? Initial evaluation, d/w involved parties, attempting to gather old records. 10 minutes ? Documenting medical record 10 minutes ? Review of results (EKGs, labs, imaging) 10 minutes ? Serial repeat bedside evaluation 10 minutes ? Discussing case with multiple providers Please see main chart for details. Excludes separately billable procedures. Patient Education/Shared MDM: Results of lab work, imaging, and discussion with [facility] MORTGAGE PROTECTION SPECIALIST shared with patient and his . Patient reports his chest pain has resolved. Plan for discharge on Lasix and potassium shared with patient and his . He should follow-up with their bumper straightener as planned. Patient's ultrasounds were ordered prior to discussion with MORTGAGE PROTECTION SPECIALIST and he reports he would like to keep that 7:00 a.m. appointment for tomorrow morning. He will be discharged home with a prescription for Lasix and potassium. Strict return precautions provided. Patient verbalized understanding and is in agreement with plan. Vital signs stable at time of discharge. All questions answered. Differential Diagnosis Differential diagnosis: Likely atypical chest pain, st elevation myocardial infarction, chest pain and other (Pulmonary embolism, DVTs) Lab Data Attestation: I reviewed the patient's lab results. 10/26/24 16:42 10/26/24 16:42 Labs: Lab Results 10/26/24 10/26/24 10/26/24 Range/Units 16:42 17:29 20:00 WBC 4.9 (4.5-10.0) K/mm3 RBC 4.25 L (4.6-6.20) M/mm3 Hgb 13.5 L (14.0-18.0) g/dL Hct 40.1 L (42.0-52.0) % MCV 94.4 (80-100) fl MCH 31.8 (26-34) pg MCHC 33.7 (32-36) g/dl RDW 12.6 (11.5-14.5) % Plt Count 222 (150-375) k/mm3 MPV 8.6 (7.4-10.4) fl Immature Gran % (Auto) 0.2 (0-0.5) % Neut % (Auto) 48.8 (45.5-73.1) % Lymph % (Auto) 32.4 (18.3-44.2) % [place] % (Auto) 13.9 H (2.6-8.5) % Eos % (Auto) 3.5 (0-4.4) % Baso % (Auto) 1.2 (0.2-1.2) % Lymph # (Auto) 1.58 (0.9-3.2) K/mm3 Madison # (Auto) 0.7 H (0.1-0.6) K/mm3 Eos # (Auto) 0.2 (0-0.3) K/mm3 Baso # (Auto) 0.1 (0.0-0.1) K/mm3 Abs Immat Gran (auto) 0.01 (0.00-0.031) K/mm3 Absolute Neuts (auto) 2.4 (1.3-6.7) K/mm3 Absolute Nucleated RBC 0.000 (0.0-0.012) K/mm3 Nucleated RBC % 0.0 (0.0-0.2) % PT 16.5 H (11.1-14.7) Seconds INR 1.4 APTT 31.5 (22.3-36.8) Seconds D-Dimer 0.46 (<0.48) ug/mL Sodium 138 (137-145) mmol/L Potassium 3.6 (3.4-5.0) mmol/L Chloride 104 (98-107) mmol/L Carbon Dioxide 29 (22-30) mmol/L Anion Gap 5 (4-12) mmol/L BUN 18 (9-20) mg/dL Creatinine 1.29 (0.7-1.3) mg/dL Estim Creat Clear Calc 102 ml/min Estimated GFR 58 L (59 - ) Glucose 111 H (65-110) mg/dL Calcium 8.8 (8.4-10.2) mg/dL Total Bilirubin 1.0 (0.2-1.3) mg/dL AST 41 (17-59) U/L ALT 27 (6-50) U/L Alkaline Phosphatase 44 (38-126) U/L Troponin I < 0.012 < 0.012 (0.000-0.034) ng/mL NT-Pro-B Natriuret Pep 161 H (19.9-100) pg/mL Total Protein 6.4 (6.3-8.2) g/dL Albumin 3.8 (3.5-5.1) g/dL Lipase 72 (23-300) U/L TSH (Reflex) 2.160 (0.465-4.68) uIU/mL Imaging Data Attestation: I personally reviewed and interpreted this imaging study as follows: Radiologist's impression: Impressions Chest X-Ray 10/26/24 18:07 Impression: No acute cardiopulmonary abnormality. Critical Care Time Critical Care Time Critical Care Time: Yes Total Critical Care Time: 55 Discharge Plan Discharge Clinical Impression: Atypical chest pain, Lower extremity edema, Venous insufficiency of left leg, May-Thurner syndrome Patient Disposition: Home Condition: Serious Instructions: Antibiotic Form, Venous Insufficiency (DC) Additional Instructions: Please return to the ER with any worsening symptoms. Follow-up with your bumper straightener as planned. Take all medications as prescribed, including regularly scheduled medications. Patient Language: Swazi Prescriptions: New furosemide [Lasix] 40 mg tablet 40 mg PO DAILY Qty: 30 0RF potassium chloride [Klor-Con M20] 20 mEq tablet,ER particles/crystals 40 meq PO DAILY Qty: 30 0RF No Action albuterol sulfate 90 mcg/actuation HFA aerosol inhaler 2 puff inhalation QID PRN (Reason: shortness of breath or wheezing) Qty: 6.7 0RF (DME) Space Chamber Spacer See Rx Instructions .ROUTE .MEDSUPPLY Qty: 1 0RF Rx Instructions: As directed levothyroxine [Synthroid] 25 mcg tablet metoprolol succinate 25 mg tablet extended release 24 hr PO hydrochlorothiazide 12.5 mg tablet Xarelto 20 mg tablet doxycycline hyclate 100 mg capsule 100 mg PO BID 10 Days Qty: 20 0RF albuterol sulfate [Ventolin HFA] 90 mcg/actuation HFA aerosol inhaler 2 puff inhalation QID PRN (Reason: shortness of breath or wheezing) Qty: 8.5 0RF methylprednisolone [Medrol (Wei)] 4 mg tablets,dose pack See Rx Instructions .ROUTE .COMPLEX Qty: 21 0RF Rx Instructions: for 6 days losartan 50 mg tablet 50 mg PO DAILY budesonide-formoterol [Symbicort] 160-4.5 mcg/actuation HFA aerosol inhaler See Rx Instructions .ROUTE .COMPLEX Rx Instructions: INHALE 2 PUFFS BY MOUTH TWICE DAILY IN THE MORNING AND IN THE EVENING FOR ASTHMA Follow-up/Referrals: PHYSICIAN NOT ON STAFF,NONSTAFF [Non-Staff] Time of Disposition: 20:41
--- OUTSIDE RECORDS SUMMARY | 2024-10-26 17:26 | XMS_ITS | Clinical Summary ---
Author Organization [facility] Address [address] [place] [address] Care Team Providers Care Machine Pie Maker Name Role Phone Unavailable Primary Care Provider [...] 2) 2022 INFLUENZA VACCINE (#1) 2024 Insurance [facility] BLUE ACCESS CHOICE [facility] BLUE ACCESS CHOICE
--- OUTSIDE RECORDS SUMMARY | 2024-10-26 17:26 | XMS_ITS | Clinical Summary ---
Author Organization [facility] Address [address] [place] [address] Care Team Providers Care Vault Custodian Name Role Phone Nigel Fagan MD Primary Care Provider [phone] Allergies No known active allergies Medications naproxen (ANAPROX,ALEVE) 220 mg tablet Take 1 tablet (220 mg total) by mouth every 12 (twelve) hours as needed for pain Active vit C,S-Cl-uaqox-lut ein-zeaxan [id number] ay-umbf-jl-mg capsule Take by mouth. Activ e nutritional [...] 1 tablet (25 mcg total) by mouth speech therapist early intervention before breakfast Active hydroCHLOROthiaz courtney (HYDRODIURIL) 25 [...] 03/13/2018 Assessment & Plan (03/27/2018 8:57 AM SOLID WASTE MANAGEMENT ENGINEER): IOP acceptable off cosopt. If experiencing any new pain OS, asked patient to call the office and restart cosopt bid OS until next appointment. If no changes stay off gtts. Keep retina f/u 04/24/18 Assessment & Plan (03/13/2018 11:00 AM SOLID WASTE MANAGEMENT ENGINEER): IOP improved from 38 02/27/18 to 12 today. Will d/c cosopt and see back in 2 weeks in general clinic for IOP check, then plan on keeping retina appt 04/24/18 Left retinal detachment 01/21/2018 Overview (01/21/2018): Added automatically from request for surgery [id number] Assessment & Plan (03/31/2019 8:53 AM SOLID WASTE MANAGEMENT ENGINEER): s/p PPV/laser/18% SF6 OS (01/25/2018) for mac [...] DFEx Assessment & Plan (04/24/2018 5:35 PM SOLID WASTE MANAGEMENT ENGINEER): POM 2 01/25/2018 status post (s/p) pars plana vitrectomy (PPV)/laser/18% SF6 the left eye .No changes in vision. IOP okay off drops. Overall doing well. Some persistent subretinal fluid pockets, but seems generally improved from prior. Periphery good. -RTC 2 months Oneal TERRANCE for repeat OCT and DFEx. Assessment & Plan (02/27/2018 4:16 PM SOLID WASTE MANAGEMENT ENGINEER): POM1 01/25/2018 status post (s/p) pars plana [...] retina Assessment & Plan (02/14/2018 8:23 AM SOLID WASTE MANAGEMENT ENGINEER): Post op week #3 status post (s/p) [...] 02/25/2018 Assessment & Plan (02/06/2018 2:18 PM SOLID WASTE MANAGEMENT ENGINEER): Post op week #2 status post (s/p) [...] PRN Assessment & Plan (01/26/2018 9:19 AM SOLID WASTE MANAGEMENT ENGINEER): Post op day #1 status post (s/p) pars plana vitrectomy (PPV)/laser/18% SF6 the left eye. Doing well. -Tobramycin QID the left eye x 1 wk then stop -Pred forte (PF) QIDthe left eye x 1 wk, then can taper to TID -Shield at bedtime (qhs) -RSVP precautions reviewed -f/u 7-10 days, sooner PRN Assessment & Plan (01/23/2018 3:20 PM SOLID WASTE MANAGEMENT ENGINEER): OD s/p barrier cryotherapy (01/20/2018): Attached. Vision [...] Added au tomatically from request for surgery [id number] Family History Medical History Relation Name Comments [...] on file Legal Sex Male 5:20 AM SOLID WASTE MANAGEMENT ENGINEER Gender Identity Male 03/31/2019 7:49 AM SOLID WASTE MANAGEMENT ENGINEER Sexual Orientation Not on file Obstetrics History [...] 133.8 kg (295 lb) 01/21/2018 12:50 PM SOLID WASTE MANAGEMENT ENGINEER Height 195.6 cm (6' 5) 01/21/2018 12:50 PM SOLID WASTE MANAGEMENT ENGINEER Body Mass Index 34.98 01/21/2018 12:50 PM SOLID WASTE MANAGEMENT ENGINEER Plan of Treatment Health Maintenance Due Date [...] Completed 11/29/2022 Medical Devices Implanted Type Area Roving Department End Finder Device Identifier Shelf Expiration Date Model / Serial / Lot Cuauhtemoc [employer] Lens Jose Sharp Iol [id number] - [id number] - [id number] Implanted:Qty: 1 on 11/16/2023 by Gurinder Crespo MD PhD at [facility] Lens Left: Eye [place] [employer] [id number] 12/18/2025 [id number] / [id number] / Insurance ANTHEM ACCESS CHOICE BLUE ACC CHOICE OOS ANTHEM ACCESS CHOICE Care Teams Vault Custodian Relationship Specialty Start Date End Date Nigel Fagan MD PCP - General 01/20/18
--- OUTSIDE RECORDS SUMMARY | 2024-10-26 17:26 | XMS_ITS | Clinical Summary ---
Author Organization [facility] Address [address] [place] [address] Care Team Providers Care Neonatal Intensive Care Unit Nurse Name Role Phone Nigel Fagan MD Primary Care Provider [phone] Source Comments [facility],non-owned Affiliates and Associated Physician Practices is amultiple site organization consisting of ambulatory clinics and hospital sitesin [place], [place], [place] and [place]. This disclosure is being madepursuant to the Care Everywhere program and may not contain all information available regarding this patient. Last updated 17.[facility] Allergies No known active allergies Medications * [...] Comments Blood Pressure 138/92 02/11/2021 11:27 AM TOOL GRINDER SET UP OPERATOR GEAR Pulse 103 02/11/2021 11:27 AM TOOL GRINDER SET UP OPERATOR GEAR Temperature 36.9 C (98.5 F) 02/11/2021 11:27 AM TOOL GRINDER SET UP OPERATOR GEAR Respiratory Rate 20 02/11/2021 11:27 AM TOOL GRINDER SET UP OPERATOR GEAR Oxygen Saturation 92% 02/11/2021 11:27 AM TOOL GRINDER SET UP OPERATOR GEAR Inhaled Oxygen Concentration - - Weight 154.2 kg (340 lb) 02/11/2021 11:27 AM TOOL GRINDER SET UP OPERATOR GEAR Height 195.6 cm (6' 5) 02/11/2021 11:27 AM TOOL GRINDER SET UP OPERATOR GEAR Body Mass Index 40.32 02/11/2021 11:27 AM TOOL GRINDER SET UP OPERATOR GEAR Plan of Treatment Health Maintenance Due Date [...] Group ID:Not on file Type:Worker's Comp Address: [address] [id number] [employer] GENERIC ANTHEM ANTHEM ANTHEM ANTHEM ANTHEM ANTHEM ANTHEM ANTHEM ANTHEM Care Teams Neonatal Intensive Care Unit Nurse Relationship Specialty Start Date End Date Nigel Fagan MD [address] [place] [address] PCP - General Internal Medicine 12/14/18
--- OUTSIDE RECORDS SUMMARY | 2024-10-26 17:26 | XMS_ITS | Encounter Summary ---
Author Organization [facility] Address [address] [place] [address] Phone Care Team Providers Care A P Mechanic Name Role Phone Nigel Fagan MD Primary Care Provider [phone] Encounter Details Date Type Department Care Team (Late st Contact Info) Description 01/20/2018 Ophth Exam [facility] Medicine Ophthalmology [address] [place] [address] 1st [place] [id number] Hamida Orr MD [address] [place] [address] Social History Tobacco Use Types Packs/Day Years Used Date Smoking Tobacco: Never Assessed Sex and Gender Information Value Date Recorded Sex Assigned at Not on file Legal Sex Male 5:20 AM ACCESS SERVICE REPRESENTATIVE Gender Identity Male 03/31/2019 7:49 AM ACCESS SERVICE REPRESENTATIVE Sexual Orientation Not on file documented as of this encounter Plan of Treatment Not on file documented as of this encounter Visit Diagnoses Not on filedocumented in this encounter Eye Exam Visual Acuity Right eye Left eye Near sc 20/20 CF @ [address] area Tonometry (Tonopen, 2:51 PM) Right eye Left eye Pressure 16 12 Pupils Dark Light Shape React APD Right eye 6 2 Round Brisk None Left eye 6 5.5 Round Brisk 3+ Visual Castro Right eye Left eye Full Restrictions Total inferior t emporal, superior nasal, inferior nasal deficiencies; Partial inner superior temporal deficiency Small ST island of vision OS Extraocular Movement Right eye Left eye Full Full Neuro/Psych Oriented x3: Yes Dilation Both eyes: 1.0% Mydriacyl, 2 .5% Phenylephrine @ 2:51 PM External Exam Right eye Left eye External Normal Normal Slit Lamp Exam Right eye Left eye Lids/Lashes Normal Normal Conjunctiva/Sclera White and quiet White and jayy et Cornea Clear Clear Anterior Chamber Deep and quiet Deep and quiet Iris Round and reactive Round and aleyda ctive Lens 1+ NS 1+ NS Vitreous Vit syneresis Vit syneresis Fundus Exam Right eye Left eye Disc Tilted disc Tilted disc C/D Ratio 0.35 Macula Normal Detached Vessels Normal Normal Periphery Tesselated fundus, atrophic hole Large bullous RRD inferiorly from 10 to 4 o'clock, tear at 12 o'clock, possible tear superotemporally, tesselated fundus Care Teams A P Mechanic Relationship Specialty Start Date End Date Nigel Fagan MD PCP - General 01/20/18 documented as of this encounter
[2024-10-26 17:42] LABS: NT Pro B Type Natriuretic Pept 161 pg/mL (19.9-100)
[2024-10-26 18:16] LABS: Thyroid Stimulating Hormone Reflex 2.160 uIU/mL (0.465-4.68)
[2024-10-26] MEDS: FUROSEMIDE INJ 40 MG/4 ML VIAL IV PUSH (20:24)
[2024-10-26] MEDS: POTASSIUM CHLORIDE 20 MEQ PACKET (FOR LIQUID) 40 MEQ PO (20:24)
[2024-10-26 20:29] LABS: Troponin I < 0.012 ng/mL (0.000-0.034)
== END 2024-10-26 21:01 | disposition home or self-care (01) ==
PROVIDERS: Emergency Medicine; Emergency Provider Registered Nurse
DX: R07.89 Other chest pain (principal); R60.0 Localized edema; I87.2 Venous insufficiency (chronic) (peripheral); I87.1 Compression of vein; Z86.711 Personal history of pulmonary embolism; Z79.01 Long term (current) use of anticoagulants
CPT/HCPCS: 36415; 71046; 80053; 83690; 83880; 84443; 84484; 85025; 85380; 85610; 85730; 93005; 96374; 99284; A9270; J1938

== ENCOUNTER 2024-10-27 08:07 | Outpatient (CLI) | payer BC, SELFPAY ==
--- NOTE | ~2024-10-27 | US_ITS ---
EXAMINATION: US venous doppler [facility] DATE: 10/27/2024 08:55 INDICATION: Bilateral lower limb swelling TECHNIQUE: Grayscale ultrasound images without and with compression and Doppler ultrasound images of the bilateral lower extremity veins were obtained. COMPARISON: None. FINDINGS: The visualized portions of right common femoral vein, profunda (deep) femoral vein, femoral vein, popliteal vein, posterior tibial veins, peroneal veins, gastrocnemius vein and greater saphenous vein outflow are patent. The visualized portions of left common femoral vein, profunda femoral vein, femoral vein, popliteal vein, posterior tibial veins, peroneal veins, gastrocnemius vein and greater saphenous vein outflow are patent. IMPRESSION: 1. No deep venous thrombosis in either lower limb. Reviewed, dictated and finalized at location A.
--- OUTSIDE RECORDS SUMMARY | 2024-10-27 08:23 | XMS_ITS | Encounter Summary ---
Author Organization [facility] Address [address] [place] [address] Phone Care Team Providers Care Customer Experience Intern Name Role Phone Nigel Fagan MD Primary Care Provider [phone] Encounter Details Date Type Department Care Team (Late st Contact Info) Description 01/20/[address] [facility] Medicine Ophthalmology [address] [place] [address] 1st [place] [id number] Hamida Orr MD [address] [place] [address] Social History Tobacco Use Types Packs/Day Years Used Date Smoking Tobacco: Never Assessed Sex and Gender Information Value Date Recorded Sex Assigned at Not on file Legal Sex Male 5:20 AM OUTSIDE PLANT CABLE ENGINEER Gender Identity Male 03/31/2019 7:49 AM OUTSIDE PLANT CABLE ENGINEER Sexual Orientation Not on file documented as [...] possible tear superotemporally, tesselated fundus Care Teams Customer Experience Intern Relationship Specialty Start Date End Date Nigel Fagan MD PCP - General 01/20/18 documented as of this encounter
--- OUTSIDE RECORDS SUMMARY | 2024-10-27 08:24 | XMS_ITS | Clinical Summary ---
Author Organization [facility] Address [address] [place] [address] Care Team Providers Care Family Resource Specialist Name Role Phone Unavailable Primary Care Provider [...] 2) 2022 INFLUENZA VACCINE (#1) 2024 Insurance [facility] BLUE ACCESS CHOICE [facility] BLUE ACCESS CHOICE
--- OUTSIDE RECORDS SUMMARY | 2024-10-27 08:24 | XMS_ITS | Clinical Summary ---
Author Organization [facility] Address [address] [place] [address] Care Team Providers Care Acetylene Cylinder Packing Mixer Name Role Phone Nigel Fagan MD Primary Care Provider [phone] Source Comments [facility],non-owned Affiliates and Associated Physician Practices is amultiple site organization consisting of ambulatory clinics and hospital sitesin [place], [place], [place] and [place]. This disclosure is being madepursuant to the Care Everywhere program and may not contain all information available regarding this patient. Last updated 17.[facility] Allergies No known active allergies Medications * [...] Comments Blood Pressure 138/92 02/11/2021 11:27 AM DAIRY SPECIALIST Pulse 103 02/11/2021 11:27 AM DAIRY SPECIALIST Temperature 36.9 C (98.5 F) 02/11/2021 11:27 AM DAIRY SPECIALIST Respiratory Rate 20 02/11/2021 11:27 AM DAIRY SPECIALIST Oxygen Saturation 92% 02/11/2021 11:27 AM DAIRY SPECIALIST Inhaled Oxygen Concentration - - Weight 154.2 kg (340 lb) 02/11/2021 11:27 AM DAIRY SPECIALIST Height 195.6 cm (6' 5) 02/11/2021 11:27 AM DAIRY SPECIALIST Body Mass Index 40.32 02/11/2021 11:27 AM DAIRY SPECIALIST Plan of Treatment Health Maintenance Due Date [...] Group ID:Not on file Type:Worker's Comp Address: [address] [id number] [employer] OF [employer] PAYOR GENERIC ANTHEM ANTHEM ANTHEM ANTHEM ANTHEM ANTHEM ANTHEM ANTHEM ANTHEM Care Teams Acetylene Cylinder Packing Mixer Relationship Specialty Start Date End Date Nigel Fagan MD [address] [place] [address] PCP - General Internal Medicine 12/14/18
--- OUTSIDE RECORDS SUMMARY | 2024-10-27 08:24 | XMS_ITS | Clinical Summary ---
Author Organization [facility] Address [address] [place] [address] Care Team Providers Care Ophthalmic Tech Name Role Phone Nigel Fagan MD Primary Care Provider [phone] [phone] Allergies No known active allergies Medications naproxen (ANAPROX,ALEVE) 220 mg tablet Take 1 tablet (220 mg total) by mouth every 12 (twelve) hours as needed for pain Active vit C,P-Lw-emsjk-lut ein-zeaxan [phone] db-qxly-ei-mg capsule Take by mouth. Activ e nutritional [...] 1 tablet (25 mcg total) by mouth ranch hand livestock before breakfast Active hydroCHLOROthiaz courtney (HYDRODIURIL) 25 [...] 03/13/2018 Assessment & Plan (03/27/2018 8:57 AM PSYCH SOCIAL WORKER): IOP acceptable off cosopt. If experiencing any new pain OS, asked patient to call the office and restart cosopt bid OS until next appointment. If no changes stay off gtts. Keep retina f/u 04/24/18 Assessment & Plan (03/13/2018 11:00 AM PSYCH SOCIAL WORKER): IOP improved from 38 02/27/18 to 12 today. Will d/c cosopt and see back in 2 weeks in general clinic for IOP check, then plan on keeping retina appt 04/24/18 Left retinal detachment 01/21/2018 Overview (01/21/2018): Added automatically from request for surgery [id number] Assessment & Plan (03/31/2019 8:53 AM PSYCH SOCIAL WORKER): s/p PPV/laser/18% SF6 OS (01/25/2018) for mac [...] DFEx Assessment & Plan (04/24/2018 5:35 PM PSYCH SOCIAL WORKER): POM 2 01/25/2018 status post (s/p) pars plana vitrectomy (PPV)/laser/18% SF6 the left eye .No changes in vision. IOP okay off drops. Overall doing well. Some persistent subretinal fluid pockets, but seems generally improved from prior. Periphery good. -RTC 2 months One[facility] TERRANCE for repeat OCT and DFEx. Assessment & Plan (02/27/2018 4:16 PM PSYCH SOCIAL WORKER): POM1 01/25/2018 status post (s/p) pars plana [...] retina Assessment & Plan (02/14/2018 8:23 AM PSYCH SOCIAL WORKER): Post op week #3 status post (s/p) [...] 02/25/2018 Assessment & Plan (02/06/2018 2:18 PM PSYCH SOCIAL WORKER): Post op week #2 status post (s/p) [...] PRN Assessment & Plan (01/26/2018 9:19 AM PSYCH SOCIAL WORKER): Post op day #1 status post (s/p) pars plana vitrectomy (PPV)/laser/18% SF6 the left eye. Doing well. -Tobramycin QID the left eye x 1 wk then stop -Pred forte (PF) QIDthe left eye x 1 wk, then can taper to TID -Shield at bedtime (qhs) -RSVP precautions reviewed -f/u 7-10 days, sooner PRN Assessment & Plan (01/23/2018 3:20 PM PSYCH SOCIAL WORKER): OD s/p barrier cryotherapy (01/20/2018): Attached. Vision [...] Added au tomatically from request for surgery [id number] Family History Medical History Relation Name Comments [...] on file Legal Sex Male 5:20 AM PSYCH SOCIAL WORKER Gender Identity Male 03/31/2019 7:49 AM PSYCH SOCIAL WORKER Sexual Orientation Not on file Obstetrics History [...] 133.8 kg (295 lb) 01/21/2018 12:50 PM PSYCH SOCIAL WORKER Height 195.6 cm (6' 5) 01/21/2018 12:50 PM PSYCH SOCIAL WORKER Body Mass Index 34.98 01/21/2018 12:50 PM PSYCH SOCIAL WORKER Plan of Treatment Health Maintenance Due Date [...] Completed 11/29/2022 Medical Devices Implanted Type Area Power Hammer Operator Device Identifier Shelf Expiration Date Model / Serial / Lot Cuauhtemoc [employer] Lens Jose Sharp Iol [id number] - [id number] - [id number] Implanted:Qty: 1 on 11/16/2023 by Gurinder Crespo MD PhD at [facility] Lens Left: Eye [place] [employer] [id number] 12/18/2025 [id number] / [id number] / Insurance ANTHEM ACCESS CHOICE BLUE ACC CHOICE OOS ANTHEM ACCESS CHOICE Care Teams Ophthalmic Tech Relationship Specialty Start Date End Date Nigel Fagan MD PCP - General 01/20/18
--- OUTSIDE RECORDS SUMMARY | 2024-10-27 08:24 | XMS_ITS | Patient Health Record ---
Author Organization [facility] Address [address] [place] [address] Care Team Providers Care Timber Sizer Operator Name Role Phone LeonorFrank patterson Unavailable [phone] Reason For Referral No Information Plan Of Treatment No Information Insurance Providers Payer Name Payer Address Payer Phone Subscriber Number Group Number Insured Name Patient Relationship to Insured Coverage Start Date Coverage End Date Employe r/eScre en [address] [address] [place] [address] Iglesia Bassett Self - patient is the insured
== END 2024-10-27 08:08 | disposition home or self-care (01) ==
PROVIDERS: Visit Provider Registered Nurse
DX: R60.0 Localized edema (principal)
CPT/HCPCS: 93970